=== PATIENT | male | born 1945 | race African-American/Black ===

== ENCOUNTER 2017-08-26 16:59 | Emergency (ER) | payer MEDICARE, OTHER ==
[~2017-08-26] VITALS: Ht 190.5 cm; Wt 113.4 kg
--- NOTE | 2017-08-26 17:05 | Emergency Room Report ---
History of Present Illness General Chief Complaint: Dizziness Source: Patient, EMS Present Illness HPI 72-year-old male with known difficult to treat her blood pressure brought in by EMS for episode of dizziness at home. Patient was lying down experienced dizziness, check blood pressure and it was high, 150/110. Patient takes 4 blood pressure medications, compliantl today. He states he was at [facility] recently, had a ischemic stroke, however was not discharged with any aspirin or other secondary stroke prevention medication, he has no known contraindication to aspirin or Plavix. He is not sure why he wasn't prescribed any medication on discharge. 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 However prior to EMS arrival patient started to feel better, and is currently asymptomatic. He otherwise denies chest pain, shortness of breath, abdominal pain, headache, palpitations or dizziness or nausea or vomiting currently. Allergies: Coded Allergies: No Known Allergies (Unverified , 08/26/17) Patient History Past Medical History: HTN, CVA/TIA Past Surgical History: none Pertinent Family History: none Social History: Denies: smoking, alcohol use, drug use Immunizations: UTD Reviewed Nursing Documentation: PMH: Agreed, PSxH: Agreed Review of Systems All Other Systems: negative except mentioned in HPI Physical Exam Vital Signs Date Time Temp Pulse Resp B/P (MAP) Pulse Ox O2 Delivery O2 Flow Rate FiO2 08/26/17 16:57 98.1 71 20 183/115 99 Sp02 EP Interpretation: reviewed, normal General Appearance: normal inspection, well appearing, no apparent distress, alert, GCS 15, non-toxic Head: normocephalic, atraumatic Eyes: bilateral eye PERRL, bilateral eye EOMI ENT: normal ENT inspection, hearing grossly normal, normal pharynx, no angioedema, normal voice, TMs + canals normal, uvula midline, moist mucus membranes Neck: normal inspection, full range of motion, supple, thyroid normal, no meningismus, no bony tend Respiratory: normal inspection, lungs clear, normal breath sounds, no rhonchi, no respiratory distress, no retraction, no accessory muscle use, no wheezing, speaking full sentences Cardiovascular #1: regular rate, rhythm, no edema, no JVD, normal capillary refill Gastrointestinal: normal inspection, normal bowel sounds, non tender, soft, no mass, no peritonitis, non-distended, no guarding, no hernia, no pulsatile mass Genitourinary: no CVA tenderness Musculoskeletal: normal inspection, back normal, normal range of motion, no calf tenderness, pelvis stable, Tiago's Sign negative Neurologic: normal inspection, alert, oriented x3, responsive, 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, motor strength/tone normal, cerebellar normal, normal gait, speech normal Psychiatric: normal inspection, judgement/insight normal, mood/affect normal, no suicidal/homicidal ideation, no delusions Skin: normal inspection, normal color, no rash Lymphatic: normal inspection, no adenopathy Medical Decision Making Diagnostic Impression: Primary Impression: Dizziness ER Course 72-year-old male with episode of dizziness Currently asymptomatic Vital signs here notable for elevated blood pressure over without intervention improved to 157/86 Patient has no focal neurological deficits, cerebellar exam is normal, patient ambulated into the ER without assistance. ct head: no acute hemorrhagic stroke or ischemic infarct Labs:unremarkable. Mild elevation in serum creatinine likely due to poorly controlled hypertension EKG:nonischemic Troponin 0, CBC normal, no other metabolic abnormalities The patient likely needs to be started on secondary stroke prevention, upotodate recommends daily aspirin advised patient to followup with his PMD to determine if Plavix is also an option ER course: Patient has remained stable during ED stay. Disposition: Patient is to be discharged to home. Prescriptions given are ASA Patient is instructed to follow up with their primary care doctor within 5 days. Strict return precautions discussed with patient such as fever, chills, worsening/severe pain, nausea, vomiting, which may indicate severe illness. Patient verbalizes understanding and agrees with plan. Please note that this Emergency Department Report was dictated using [employer] custody technology software, occasionally this can lead to erroneous entry secondary to interpretation by the dictation equipment EKG Diagnostic Results Rate: normal Rhythm: NSR ST Segments: no acute changes ASA given to the pt in ED: No Rhythm Strip Diag. Results EP Interpretation: yes Rate: 83 Rhythm: NSR, no PVC's, no ectopy Last Vital Signs Date Time Temp Pulse Resp B/P (MAP) Pulse Ox O2 Delivery O2 Flow Rate FiO2 08/26/17 16:57 98.1 71 20 183/115 99 Status: improved Disposition: HOME, SELF-CARE Scripts Aspirin (Aspirin EC) 81 Mg Tablet. 81 MG ORAL DAILY for 30 Days, #30 TAB Prov: SILVIA CRESPO M.D. 08/26/17 SILVIA CRESPO M.D. Aug 26, 2017 17:05
[2017-08-26] MEDS ORDERED: ASPIRIN-LOW81 MG ORAL (17:14)
[2017-08-26 17:15] VITALS: BP 163/103
[2017-08-26 17:50] LABS: BASOPHILS % (AUTO) 2.2 % (0.0-2.0); EOSINOPHILS % (AUTO) 5.6 % (0.0-3.0); HEMATOCRIT 49.1 % (42.0-52.0); MEAN CORPUSCULAR VOLUME 100 FL (80-99); MONOCYTES % (AUTO) 11.2 % (1.0-10.0); PLATELET COUNT 235 K/UL (150-450); RED BLOOD COUNT 4.93 M/UL (4.70-6.10); RED CELL DISTRIBUTION WIDTH 12.8 % (11.6-14.8); WHITE BLOOD COUNT 8.9 K/UL (4.8-10.8)
[2017-08-26 18:00] VITALS: BP 157/86
[2017-08-26 18:00] LABS: ANION GAP 8 mmol/L (5-15); BLOOD UREA NITROGEN 14 mg/dL (7-18); CALCIUM 9.6 MG/DL (8.5-10.1); CARBON DIOXIDE 29 MMOL/L (21-32); CHLORIDE 102 MMOL/L (98-107); CREATININE 1.4 MG/DL (0.55-1.30); POTASSIUM 3.9 MMOL/L (3.5-5.1); SODIUM 139 MMOL/L (136-145)
[2017-08-26 18:04] LABS: ALANINE AMINOTRANSFERASE 125 U/L (12-78); ALBUMIN 4.1 G/DL (3.4-5.0); ALBUMIN/GLOBULIN RATIO 0.8 (1.0-2.7); ALKALINE PHOSPHATASE 86 U/L (46-116); ASPARTATE AMINO TRANSFERASE 64 U/L (15-37); BILIRUBIN,TOTAL 0.5 MG/DL (0.2-1.0)
[2017-08-26] MEDS ORDERED: LISINOPRIL20 MG ORAL (18:16)
[2017-08-26] MEDS ORDERED: ABILIFY10 MG ORAL (18:16)
[2017-08-26] MEDS ORDERED: AMLODIPINE BESY10 MG ORAL (18:17)
[2017-08-26] MEDS ORDERED: TAMSULOSIN HCL0.4 MG ORAL (18:18)
[2017-08-26] MEDS ORDERED: IBUPROFEN600 MG ORAL (18:19)
[2017-08-26] MEDS ORDERED: BENADRYL50 MG ORAL (18:20)
[2017-08-26] MEDS ORDERED: OMEPRAZOLE40 M1 ORAL (18:21)
[2017-08-26] MEDS ORDERED: SOMA350 MG PO (18:23)
[2017-08-26] MEDS ORDERED: SIMVASTATIN20 MG ORAL (18:28)
[2017-08-26] MEDS ORDERED: ZOCOR20 M1 ORAL (18:28)
[2017-08-26 18:40] VITALS: BP 156/88
--- NOTE | 2017-08-27 08:52 | Diagnostic Imaging Report ---
Indication: Dizziness Technique: Contiguous 5 mm thick transaxial imaging of the head obtained in a Siemens Sensation [address] scanner. Soft tissue and bone windows generated. Automatic Exposure Control was utilized. Total Dose length Product (DLP): 1354.[address] Dose Index Volume (CTDIvol): 70.38 mGy Comparison: none Findings: Mild, nonspecific, white matter hypoattenuation is noted throughout the brain consistent with chronic small vessel disease. Metallic artifact obscuring portions of the brain due to small foreign bodies within the scalp. There is no midline shift, edema, acute hemorrhage, mass effect, or abnormal extra-axial fluid collections. Bones and extra osseous soft tissues are unremarkable. Mucosal thickening demonstrated in the ethmoid sinus. Impression: No acute intracranial bleed, mass effect or edema. Nonspecific white matter hypoattenuation probably due to chronic small vessel disease. Metallic artifacts. Ethmoid sinusitis. [facility] has communicated the preliminary results to the Emergency Department. Their findings are largely concordant with this report. The CT scanner at [facility] is accredited by the [employer] and the scans are performed using dose optimization techniques as appropriate to a performed exam including Automatic Exposure control.
--- NOTE | 2017-08-27 12:38 | Cardiology Report ---
APPROVED REPORT EKG Measurement Heart [id number] CT [id number] Normal sinus rhythm Normal ECG
== END 2017-08-26 18:40 | disposition home or self-care (01) ==
LOC: EDBD 16:59 → EMR 17:19
DX: R42 Dizziness and giddiness (principal); I10 Essential (primary) hypertension; Z86.73 Personal history of transient ischemic attack (TIA), and cerebral infarction without residual deficits; J32.2 Chronic ethmoidal sinusitis
CPT/HCPCS: 36415; 70450; 80053; 84484; 85025; 93005; 99284

== ENCOUNTER 2017-12-06 12:28 | Inpatient (IN) | payer MEDICARE, OTHER ==
[~2017-12-06] VITALS: Ht 182.9 cm; Wt 113.4 kg
[2017-12-06] VITALS (10 sets, daily range): BP systolic 78–129; BP diastolic 50–84
[~2017-12-06 12:28] MED LIST: ABILIFY10 MG ORAL; AMLODIPINE BESY10 MG ORAL; ASPIRIN-LOW81 MG ORAL; BENADRYL50 MG ORAL; IBUPROFEN600 MG ORAL; LISINOPRIL20 MG ORAL; OMEPRAZOLE40 M1 ORAL; SIMVASTATIN20 MG ORAL; SOMA350 MG PO; TAMSULOSIN HCL0.4 MG ORAL; ZOCOR20 M1 ORAL
[2017-12-06] MEDS ORDERED: Sodium Chloride 500ML 500 ML IV ONE ×2 (12:31→20:30)
--- NOTE | 2017-12-06 12:39 | Emergency Room Report ---
History of Present Illness General Chief Complaint: Generalized Weakness Source: Patient, EMS Present Illness HPI Patient presents with complaints of low back pain pelvic pain bilaterally and left ankle pain Describes a mechanical slip and fall just prior to arrival However the patient is not able to stand and bear weight since the fall denies any headache Denies any chest pain or shortness of breath denies any upper extremity discomfort Pain to the lower back and left ankle is 6 out of 10 Worse with movement denies any recent fevers Allergies: Coded Allergies: No Known Allergies (Unverified , 08/26/17) Patient History Past Medical History: see triage record Pertinent Family History: none Reviewed Nursing Documentation: PMH: Agreed; PSxH: Agreed Nursing Documentation-PMH Past Medical History: No History, Except For Hx Hypertension: Yes History Of Psychiatric Problem: Yes - schizophrenia Hx Cerebrovascular Accident: Yes - 4 months ago Review of Systems All Other Systems: negative except mentioned in HPI Physical Exam Vital Signs Date Time Temp Pulse Resp B/P (MAP) Pulse Ox O2 Delivery O2 Flow Rate FiO2 12/06/17 12:30 98.1 85 18 120/80 99 Room Air 98.1 Sp02 EP Interpretation: reviewed, normal General Appearance: no apparent distress Head: normocephalic, atraumatic Eyes: bilateral eye PERRL, bilateral eye EOMI ENT: hearing grossly normal, normal pharynx Neck: full range of motion, supple Respiratory: chest non-tender, lungs clear Cardiovascular #1: regular rate, rhythm Gastrointestinal: non tender, soft Musculoskeletal: swelling - Left ankle, neurovascularly intact however, tender on paraspinal L345, no midline step-off sensory intact Neurologic: alert, oriented x3, responsive Skin: other - Swelling as noted above Lymphatic: no adenopathy Procedures Splinting Splinting : Consent: Verbal Location: left ankle Pre-Made Type: aircast Splint: sugar-tong Pre-Proc Neuro Vasc Exam: normal Post-Proc Neuro Vasc Exam: normal Patient Tolerated: Well Complications: None Medical Decision Making Diagnostic Impression: Primary Impression: Fall Additional Impressions: Unable to ambulate Rhabdomyolysis Elevated transaminase level ER Course With patient's initial presentation essentially complained of mainly falling just prior to presenting to the ER Patient's blood work however reveals abnormalities including significantly elevated total CK Evidence of rhabdomyolysis Causing also elevation of the liver function test patient's kidney function is also abnormal Patient given further IV hydration and requires inpatient care Labs Test 12/06/17 13:05 12/06/17 13:15 White Blood Count 17.3 K/UL (4.8-10.8) Red Blood Count 4.26 M/UL (4.70-6.10) Hemoglobin 14.2 G/DL (14.2-18.0) Hematocrit 40.5 % (42.0-52.0) Mean Corpuscular Volume 95 FL (80-99) Mean Corpuscular Hemoglobin 33.4 PG (27.0-31.0) Mean Corpuscular Hemoglobin Concent 35.1 G/DL (32.0-36.0) Red Cell Distribution Width 13.6 % (11.6-14.8) Platelet Count 241 K/UL (150-450) Mean Platelet Volume 7.5 FL (6.5-10.1) Neutrophils (%) (Auto) 81.0 % (45.0-75.0) Lymphocytes (%) (Auto) 10.5 % (20.0-45.0) Monocytes (%) (Auto) 8.0 % (1.0-10.0) Eosinophils (%) (Auto) 0.0 % (0.0-3.0) Basophils (%) (Auto) 0.6 % (0.0-2.0) Sodium Level 140 MMOL/L (136-145) Potassium Level 4.1 MMOL/L (3.5-5.1) Chloride Level 103 MMOL/L (98-107) Carbon Dioxide Level 22 MMOL/L (21-32) Anion Gap 15 mmol/L (5-15) Blood Urea Nitrogen 46 mg/dL (7-18) Creatinine 2.8 MG/DL (0.55-1.30) Estimat Glomerular Filtration Rate mL/min (>60) Glucose Level 106 MG/DL (74-106) Calcium Level 9.9 MG/DL (8.5-10.1) Total Bilirubin 0.9 MG/DL (0.2-1.0) Aspartate Amino Transf (AST/SGOT) 608 U/L (15-37) Alanine Aminotransferase (ALT/SGPT) 268 U/L (12-78) Alkaline Phosphatase 69 U/L (46-116) Total Creatine Kinase 97433 U/L (26-308) Creatine Kinase MB 43.2 NG/ML (0.0-3.6) Creatine Kinase MB Relative Index 0.1 Troponin I 0.137 ng/mL (0.000-0.056) Total Protein 8.8 G/DL (6.4-8.2) Albumin 4.0 G/DL (3.4-5.0) Globulin 4.8 g/dL Albumin/Globulin Ratio 0.8 (1.0-2.7) Urine Color Yellow Urine Appearance Clear Urine pH 6 (4.5-8.0) Urine Specific [place] 1.015 (1.005-1.035) Urine Protein 3+ (NEGATIVE) Urine Glucose (UA) Negative (NEGATIVE) Urine Ketones 1+ (NEGATIVE) Urine Occult Blood 5+ (NEGATIVE) Urine Nitrite Negative (NEGATIVE) Urine Bilirubin Negative (NEGATIVE) Urine Urobilinogen Normal MG/DL (0.0-1.0) Urine Leukocyte Esterase 1+ (NEGATIVE) Urine RBC 2-4 /HPF (0 - 0) Urine WBC 2-4 /HPF (0 - 0) Urine Squamous Epithelial Cells Occasional /LPF Urine Bacteria Occasional /HPF (NONE) Urine Sperm Occasional /LPF (NONE) Rhythm Strip Diag. Results EP Interpretation: yes Rate: 78 Rhythm: NSR, no PVC's, no ectopy Chest X-Ray Diagnostic Results Chest X-Ray Diagnostic Results : Chest X-Ray Ordered: Yes # of Views/Limited/Complete: 1 View Indication: Chest Pain EP Interpretation: Yes Interpretation: no consolidation, no effusion, no pneumothorax Impression: No acute disease Electronically Signed by: rain bill do Other X-Ray Diagnostic Results Other X-Ray Diagnostic Results : X-Ray ordered: left ankle # of Views/Limited Vs Complete: 3 View Indication: Pain EP Interpretation: Yes Interpretation: no dislocation, other - question acuity, tibial fracture, significant chronicity as well Impression: Other - acuity uncertain left tibial fracture Electronically Signed by: rain bill do CT/MRI/US Diagnostic Results CT/MRI/US Diagnostic Results : Impression ct abdpelvis and ct L spine: IMPRESSION: 1. No acute traumatic injuryidentified, allowing for lack of contrast. 2. Possible isodense subcapsular left medial upper pole renal nodule, measuring up to 1.8 cmin diameter, versus cortical lobulation; additional 5-6 mmhyperdense nodule in the subcapsular posterior cortex of the left mid kidney. Nonemergent targeted renal ultrasound is suggested for further evaluation, unless previouslyperformed. INCIDENTAL:Hypodense bilateral renal cysts;moderate atherosclerosis;mild to moderate prostatomegaly, with mild circumferential wall thickening of the moderatelyto markedlydistended urinarybladder (estimated volume = 500 cc), aswell as right posterior urinarybladder diverticulum, suggesting chronic bladder outlet obstruction; small to moderate fat-containing bilateral indirect inguinal hernias; peripheral inferior right middle lobe sub-segmental atelectasis or fibrosis; calcified lingular granuloma. CT L SPINE: (No comparison exams available). IMPRESSION:No acute fracture. INCIDENTAL: Multilevel mild and moderate disc and facet joint degeneration; partial ankylosis of the anterior SI joints bilaterallywith bridging marginal osteophytes. Last Vital Signs Date Time Temp Pulse Resp B/P (MAP) Pulse Ox O2 Delivery O2 Flow Rate FiO2 12/06/17 12:30 98.1 85 18 120/80 99 Room Air 98.1 Status: improved Disposition: ADMITTED INPATIENT Condition: Serious Rain Bill DO Dec 06, 2017 12:39
[2017-12-06 13:51] LABS: BASOPHILS % (AUTO) 0.6 % (0.0-2.0); HEMATOCRIT 40.5 % (42.0-52.0); HEMOGLOBIN 14.2 G/DL (14.2-18.0); LYMPHOCYTES % (AUTO) 10.5 % (20.0-45.0); MEAN CORPUSCULAR VOLUME 95 FL (80-99); PLATELET COUNT 241 K/UL (150-450); RED BLOOD COUNT 4.26 M/UL (4.70-6.10); RED CELL DISTRIBUTION WIDTH 13.6 % (11.6-14.8); WHITE BLOOD COUNT 17.3 K/UL (4.8-10.8)
[2017-12-06 13:56] LABS: APPEARANCE,URINE CLEAR; BILIRUBIN, URINE NEGATIVE (NEGATIVE); GLUCOSE, URINE (UA) NEGATIVE (NEGATIVE); KETONES,URINE 1+ (NEGATIVE); LEUKOCYTE ESTERASE ,URINE 1+ (NEGATIVE); NITRITE,URINE NEGATIVE (NEGATIVE); PH,URINE 6 (4.5-8.0); PROTEIN,URINE 3+ (NEGATIVE); UROBILINOGEN,URINE NORMAL MG/DL (0.0-1.0)
[2017-12-06 14:06] LABS: ANION GAP 15 mmol/L (5-15); BLOOD UREA NITROGEN 46 mg/dL (7-18); CALCIUM 9.9 MG/DL (8.5-10.1); CARBON DIOXIDE 22 MMOL/L (21-32); CHLORIDE 103 MMOL/L (98-107); CREATININE 2.8 MG/DL (0.55-1.30); POTASSIUM 4.1 MMOL/L (3.5-5.1); SODIUM 140 MMOL/L (136-145)
[2017-12-06 14:06] LABS: COLOR,URINE YELLOW
[2017-12-06 14:20] LABS: ALANINE AMINOTRANSFERASE 268 U/L (12-78); ALBUMIN/GLOBULIN RATIO 0.8 (1.0-2.7); ALKALINE PHOSPHATASE 69 U/L (46-116); ASPARTATE AMINO TRANSFERASE 608 U/L (15-37); BILIRUBIN,TOTAL 0.9 MG/DL (0.2-1.0); CKMB 43.2 NG/ML (0.0-3.6); CREATINE KINASE 23399 U/L (26-308)
[2017-12-06] MEDS ORDERED: Albuterol/Ipratropium 3ml neb HHN PRN (14:30)
[2017-12-06] MEDS ORDERED: CATAPRES0.1 MG ORAL (20:05)
[2017-12-06] MEDS ORDERED: FUROSEMIDE40 MG ORAL (20:06)
[2017-12-06] MEDS ORDERED: Norco 5mg/325mg tab ORAL ONE (20:30)
[2017-12-06] MEDS: Heparin 5000 units/ml inj SUBQ SCH (22:20)
[2017-12-07] VITALS: BP 118/72
[2017-12-07 04:00] VITALS: BP 134/78
[2017-12-07 04:51] LABS: ANION GAP 8 mmol/L (5-15); BLOOD UREA NITROGEN 32 mg/dL (7-18); CALCIUM 8.9 MG/DL (8.5-10.1); CARBON DIOXIDE 26 MMOL/L (21-32); CHLORIDE 104 MMOL/L (98-107); CREATININE 1.7 MG/DL (0.55-1.30); POTASSIUM 3.6 MMOL/L (3.5-5.1); SODIUM 138 MMOL/L (136-145)
[2017-12-07 05:12] LABS: CREATINE KINASE 14709 U/L (26-308)
[2017-12-07 08:23] VITALS: BP 132/60
--- NOTE | 2017-12-07 08:55 | Diagnostic Imaging Report ---
Indication: Abdominal and back pain Technique: CT of the abdomen and pelvis utilizing automated exposure control without intravenous or oral contrast. CT dose: Total DLP 1117.79 mGycm; CTDI vol 19.28 mGy Comparison: None Findings: Evaluation of the vascular structures and solid organs limited without the use of intravenous or oral contrast. Within these limitations the following observations are made: There is dependent atelectasis in lung bases. There is subsegmental atelectasis versus consolidation in the middle lobe. Heart size within normal limits. Calcified granuloma in the lingula. Noncontrast evaluation of the liver, gallbladder, spleen, adrenal glands and pancreas grossly unremarkable. No definite evidence to suggest solid organ injury however evaluation limited without contrast. There is a possible isodense subcapsular left medial upper pole renal nodule which measures up to 1. Centimeters in diameter versus cortical lobulation. Additionally there is a 6 mm hyperdense nodule in the subcapsular posterior cortex of the left kidney (image 75). There are bilateral hypodense renal lesions which likely represent simple renal cysts. There is no hydronephrosis bilaterally. There is bladder distention with bladder wall thickening in the right posterior urinary bladder diverticulum. The prostate is enlarged there is no free intraperitoneal air. No evidence of bowel. No ascites. Appendix is normal. There is a tiny hiatus hernia. Abdominal aorta are normal in caliber with moderate atherosclerotic calcification. There is bilateral fat-containing inguinal hernias. There is multilevel degenerative change of the thoracolumbar spine most pronounced in the lower lumbar spine with there is vacuum disc phenomenon at L5-S1. No acute fracture identified. IMPRESSION: Limited exam without intravenous or oral contrast. Within these limitations: * No definite evidence to suggest solid organ injury however sensitivity limited without IV contrast. * No acute osseous abnormality identified. * Prostatomegaly with mild bladder distention, bladder wall thickening and bladder diverticulum. Findings suggest chronic bladder outlet obstruction. Correlate with urinalysis to exclude cystitis. * Subsegmental atelectasis versus scarring or fibrosis in the inferior right middle lobe. Superimposed pneumonia should be excluded clinically. * Possible isodense subcapsular left upper pole renal nodule measuring up to 1.8 cm diameter versus cortical lobulation. Additional 6 mm hyperdense nodule in the left kidney. Further evaluation with nonemergent renal ultrasound recommended unless previously performed. Findings correspond with the preliminary report. Study obtained via the emergency department however patient admitted to the hospital at time of dictation of the final report. The CT scanner at [facility] is accredited by the [employer] and the scans are performed using protocols designed to limit radiation exposure to as low as reasonably achievable to attain images of sufficient resolution adequate for diagnostic evaluation.
[2017-12-07] MEDS ORDERED: ARIPiprazole 10mg tab ORAL SCH (09:00)
[2017-12-07] MEDS ORDERED: Aspirin Baby 81mg ORAL SCH (09:00)
[2017-12-07] MEDS: Heparin 5000 units/ml inj SUBQ SCH ×2 (09:02→20:32)
--- NOTE | 2017-12-07 09:02 | Diagnostic Imaging Report ---
Indication: Pain status post fall Technique: CT lumbar spine was performed utilizing automated exposure control without intravenous contrast material. Axial, sagittal and coronal images were generated. CT dose: Total DLP 710.87 mGycm; CTDI vol 23.04 mGy Comparison: None Findings: No evidence of acute fracture or traumatic malalignment. There is overall mild to moderate multilevel degenerative change manifested by osteophyte formation, facet hypertrophy and loss of intervertebral body disc height as well as multilevel disc degeneration/small disc bulges. These findings are most pronounced at L5-S1 where there is vacuum disc phenomenon. There is no significant bony central canal stenosis. No significant bony foraminal narrowing. Please note that the cord, disc and nervous structures structures are better evaluated on MRI, which can be obtained for further evaluation as clinically indicated. There is partial ankylosis of the bilateral sacroiliac joints with bridging marginal osteophytes. There are atherosclerotic calcifications of a normal caliber aorta and iliac arteries. Please see concurrent CT of the abdomen and pelvis. IMPRESSION: No evidence of acute fracture or traumatic malalignment. Mild to moderate multilevel degenerative change of the lumbar spine as above. This corresponds with the [facility] preliminary report. Study obtained via the emergency department however patient admitted to the hospital at time of dictation of the final report. The CT scanner at [facility] is accredited by the [employer] and the scans are performed using protocols designed to limit radiation exposure to as low as reasonably achievable to attain images of sufficient resolution adequate for diagnostic evaluation.
--- NOTE | 2017-12-07 10:50 | Cardiology Report ---
APPROVED REPORT EXAM: Two-dimensional and M-mode echocardiogram with Doppler and color Doppler. INDICATION Syncope M-Mode DIMENSIONS IVSd1.6 (0.7-1.1cm)Left Atrium (MM)3.4 (1.6-4.0cm) LVDd4.6 (3.5-5.6cm)Aortic Root3.2 (2.0-3.7cm) PWd1.2 (0.7-1.1cm)Aortic Cusp Exc.2.0 (1.5-2.0cm) LVDs3.0 (2.5-4.0cm) PWs2.0 cm Normal left ventricular chamber size, systolic function and wall motion. Left ventricular ejection fraction estimated to be 55 %. Mild left ventricular hypertrophy. Anterior Echo-free space, may be due to pericardial fat or effusion. All other cardiac chamber sizes are within normal limits. Heavy focal aortic valve sclerosis with adequate cusp excursion. Mildly thickened mitral valve leaflets with normal excursion. Mild mitral annulus and aortic root calcification. Normal pulmonic valve structure. Normal tricuspid valve structure. IVC is normal in size with physiological collapse. A color flow and spectral Doppler study was performed and revealed: No aortic insufficiency. No mitral regurgitation. Mitral diastolic velocities suggest mild left ventricular diastolic dysfunction (Grade I). Trace tricuspid regurgitation. Tricuspid systolic velocities suggests peak right ventricular systolic pressure of 11 mmHg. No pulmonic regurgitation present.
--- NOTE | 2017-12-07 11:17 | History and Physical Report ---
DATE OF ADMISSION: 12/06/2017 CHIEF COMPLAINT: Generalized weakness. HISTORY OF PRESENT ILLNESS: This is a 72-year-old male, who came into the ED complaining of generalized muscular pain and weakness for several days prior to admission. There is also description of mechanical slip and fall and trauma to the left leg. PAST MEDICAL HISTORY: 1. Hypertensive cardiovascular disease. 2. Schizophrenia. 3. Degenerative joint disease. 4. Benign prostatic hypertrophy. HOME MEDICATIONS: Amlodipine, Abilify, Soma, clonidine, Benadryl, Lasix, Motrin, lisinopril, omeprazole, Zocor, and tamsulosin. ALLERGIES: No known drug allergies. FAMILY HISTORY: Unremarkable. SOCIAL HISTORY: He lives at home. HABITS: He is a nonsmoker and nondrinker. There is no history of illicit drug abuse. REVIEW OF SYSTEMS: HEENT: Hearing and eyesight are normal. ENDOCRINE: No history of diabetes, thyroid, or adrenal problems. RESPIRATORY: He denies shortness of breath, cough, or hemoptysis. CARDIOVASCULAR: He denies chest pain or palpitations. GASTROINTESTINAL: No history of hematochezia, melena, hematemesis, diarrhea, or constipation. GENITOURINARY: He denies dysuria, frequency, urgency, or hematuria. NEUROLOGIC: No history of stroke, syncope, or Parkinson disease. PHYSICAL EXAMINATION: GENERAL: This is an elderly male, who is in no acute distress. VITAL SIGNS: Blood pressure 134/78, pulse 86 and regular, respirations 20, and temperature 97.3. HEENT: The head is normocephalic and atraumatic. Pupils are equal, round, and reactive to light and accommodation consensually. NECK: Supple. Trachea midline. There was no lymphadenopathy or thyromegaly. LUNGS: Clear to auscultation and percussion. HEART: Regular rate and rhythm without rubs, murmurs, or gallops. ABDOMEN: Soft and nontender. Bowel sounds were active. EXTREMITIES: No clubbing, cyanosis, or edema. His left leg is slightly tender to touch. NEUROLOGIC: He is alert and oriented x4. Cranial nerves II through XII intact. LABORATORY AND ANCILLARY DATA: CBC shows white count of 17,300, hemoglobin 14.2, and platelet count 241,000. Serum chemistry, electrolytes within normal limits. Admission BUN 46, today 32. Admission creatinine 2.8, today 1.7. Admission CPK 23,399; today 14,709. Urinalysis, urine chemistry 1+ ketone, 5+ occult blood, which was completely within normal limits. ASSESSMENT: 1. Acute rhabdomyolysis, most likely due to fall, etiology unclear. 2. Hypertensive cardiovascular disease. 3. Schizophrenia. 4. Degenerative joint disease. 5. Benign prostatic hypertrophy. PLAN: 1. IV fluid rehydration. 2. Check serum CPK. 3. Psychiatric evaluation. Magan Alexander M.D. DR: SHARON JOB#: [id number] CC: [id number]
--- NOTE | 2017-12-07 11:53 | Diagnostic Imaging Report ---
Indication: Chest pain Technique: XRAY Chest 1v Comparison: None Findings: Heart size within the upper limits for normal. Mediastinal contours are sharp. There is patchy bibasilar airspace opacity, right greater than left, which may be related to atelectasis versus pneumonia. No pleural effusion. No pneumothorax. There are degenerative changes of the spine. No acute osseous abnormality. IMPRESSION: Patchy bibasilar opacities, right greater than left, which may related to subsegmental atelectasis or scarring. Pneumonia should be excluded clinically. Follow-up exam recommended. Study obtained via the emergency department however patient admitted to the hospital at time of dictation of the final report.
--- NOTE | 2017-12-07 11:59 | Diagnostic Imaging Report ---
Indication: Pain Technique: XRAY Ankle Compl Min 3v L Comparison: None Findings: There is no definite evidence of acute fracture. Ankle mortise is intact on these nonstress views. There are well-corticated ossific densities projecting adjacent to the medial malleolus which may be related to sequela of remote trauma, degenerative change or accessory ossicles. There is a plantar calcaneal enthesophyte. Imaged sinuses otherwise grossly unremarkable. No radiopaque foreign body seen. IMPRESSION: No evidence of acute fracture or dislocation. Well-corticated densities projecting adjacent to the medial malleolus may represent sequela of prior trauma, accessory ossicles and/or degenerative/arthritic change. Correlate clinically. Study obtained via the emergency department however patient admitted to the hospital at time of dictation of the final report.
[2017-12-07 12:00] VITALS: BP 144/107
[2017-12-07 16:00] VITALS: BP 156/107
[2017-12-07] MEDS ORDERED: Albuterol/Ipratropium 3ml neb HHN PRN (18:00)
[2017-12-07 20:00] VITALS: BP 150/100
[2017-12-07] MEDS ORDERED: Zolpidem 5mg tab ORAL PRN (20:45)
[2017-12-07] MEDS: Norco 5mg/325mg tab ORAL PRN (20:58)
[2017-12-08] VITALS: BP 131/100
[2017-12-08 04:00] VITALS: BP 142/94
[2017-12-08 05:22] LABS: BASOPHILS % (AUTO) 0.9 % (0.0-2.0); EOSINOPHILS % (AUTO) 2.1 % (0.0-3.0); HEMATOCRIT 40.7 % (42.0-52.0); HEMOGLOBIN 14.4 G/DL (14.2-18.0); LYMPHOCYTES % (AUTO) 31.4 % (20.0-45.0); MEAN CORPUSCULAR VOLUME 94 FL (80-99); MONOCYTES % (AUTO) 9.8 % (1.0-10.0); NEUTROPHILS % (AUTO) 55.8 % (45.0-75.0); PLATELET COUNT 239 K/UL (150-450); RED BLOOD COUNT 4.32 M/UL (4.70-6.10); WHITE BLOOD COUNT 9.1 K/UL (4.8-10.8)
[2017-12-08 05:35] LABS: CREATINE KINASE 6957 U/L (26-308)
[2017-12-08] MEDS: Norco 5mg/325mg tab ORAL PRN (07:01)
[2017-12-08 08:00] VITALS: BP 125/86
[2017-12-08] MEDS: ARIPiprazole 10mg tab ORAL SCH (08:07)
[2017-12-08] MEDS: Aspirin Baby 81mg ORAL SCH (08:09)
[2017-12-08] MEDS: Heparin 5000 units/ml inj SUBQ SCH ×2 (08:09→20:28)
--- NOTE | 2017-12-08 08:47 | General Progress Note ---
Assessment/Plan Assessment/Plan Acute Rhabdo====> CPK <7000 continue ivf. Ambulate. Subjective Allergies: Coded Allergies: No Known Allergies (Unverified , 08/26/17) Subjective No c/o Objective Last 24 Hour Vital Signs Date Time Temp Pulse Resp B/P (MAP) Pulse Ox O2 Delivery O2 Flow Rate FiO2 12/08/17 04:00 97.7 84 22 142/94 98 Room Air 97.7 12/08/17 04:00 94 12/08/17 00:00 97.3 96 20 131/100 97 Room Air 97.3 12/08/17 00:00 94 12/07/17 21:12 96 105 117 12/07/17 20:10 96 18 Room Air 12/07/17 20:00 97.7 106 19 150/100 98 Room Air 97.7 12/07/17 20:00 98 12/07/17 16:00 97.3 113 19 156/107 97 Room Air 97.3 12/07/17 15:26 117 12/07/17 12:00 97.9 99 20 144/107 96 Room Air 97.9 12/07/17 11:34 101 12/07/17 09:57 101 18 Room Air 21 Intake and Output 12/07/17 12/08/17 19:00 07:00 Intake Total 1310 ml 875 ml Balance 1310 ml 875 ml Intake Oral 560 ml IV Total 750 ml 875 ml # Voids 5 3 # Bowel Movements 1 Laboratory Tests 12/08/17 03:35: White Blood Count 9.1, Red Blood Count 4.32L, Hemoglobin 14.4, Hematocrit 40.7L , Mean Corpuscular Volume 94, Mean Corpuscular Hemoglobin 33.4H, Mean Corpuscular Hemoglobin Concent 35.4, Red Cell Distribution Width 13.0, Platelet Count 239, Mean Platelet Volume 6.8, Neutrophils (%) (Auto) 55.8, Lymphocytes (% ) (Auto) 31.4, Monocytes (%) (Auto) 9.8, Eosinophils (%) (Auto) 2.1, Basophils ( %) (Auto) 0.9, Magnesium Level 1.8, Total Creatine Kinase 6957H Height (Feet): 6 Height (Inches): 0.00 Weight (Pounds): 249 Objective CV RR Lungs CTA Abd SNT. BS + E No CCE Magan Alexander MD December 08, 2017 08:46
[2017-12-08] MEDS ORDERED: 1/2 NS 1000ml IV ONE (09:17)
[2017-12-08 12:00] VITALS: BP 136/95
[2017-12-08 16:00] VITALS: BP 126/75
[2017-12-08 20:00] VITALS: BP 140/92
--- NOTE | 2017-12-08 22:19 | Consultation ---
History of Present Illness General Date patient seen: Dec 07, 2017 Chief Complaint: Generalized Weakness Present Illness HPI 72-year-old male, with hx of schizophrenia who came to ED complaining of generalized muscular pain and weakness. the pt was seen on and was somewhat disorganized. the pt c/o insomnia and stated that he has anxiety. the pt didnt endorse avh, no si/hi/ no agitation Allergies: Coded Allergies: No Known Allergies (Unverified , 08/26/17) Medication History Scheduled Amlodipine Besylate* (Amlodipine Besylate*), 10 MG ORAL DAILY, (Reported) Aripiprazole* (Abilify*), 10 MG ORAL DAILY, (Reported) Aspirin (Aspirin EC), 81 MG ORAL DAILY Clonidine Hcl* (Catapres*), 0.1 MG ORAL EVERY 6 HOURS, (Reported) Diphenhydramine HCl (Diphenhydramine HCl), 50 MG ORAL QHS, (Reported) Furosemide* (Lasix*), 40 MG ORAL DAILY, (Reported) Lisinopril (Lisinopril*), 20 MG ORAL DAILY, (Reported) Omeprazole (Omeprazole), 40 MG ORAL DAILY, (Reported) Simvastatin (Zocor), 20 MG ORAL BEDTIME, (Reported) Tamsulosin Hcl (Tamsulosin Hcl*), 0.4 MG ORAL BID, (Reported) Scheduled PRN Carisoprodol* (Soma*), 350 MG PO for For Pain, (Reported) Ibuprofen* (Motrin*), 600 MG ORAL BID PRN for For Pain, (Reported) Patient History Limited by: medical condition History Provided By: Patient, Medical Record Healthcare decision maker Resuscitation status Full Code Advanced Directive on File Past Medical/Surgical History Past Medical/Surgical History: (1) Rhabdomyolysis (2) Fall (3) Unable to ambulate (4) Elevated transaminase level Review of Systems Psychiatric: Reports: prior hx, anxiety, depressed feelings, emotional problems , hallucinations Physical Exam General Appearance: WD/WN, no apparent distress, alert Neurologic: alert, oriented x 3, responsive, depressed affect Last 24 Hour Vital Signs Date Time Temp Pulse Resp B/P (MAP) Pulse Ox O2 Delivery O2 Flow Rate FiO2 12/08/17 21:48 103 119 124 12/08/17 20:00 103 12/08/17 20:00 97.3 103 19 140/92 97 97.3 12/08/17 16:00 99 12/08/17 16:00 98.2 107 21 126/75 98 98.2 12/08/17 12:00 97.3 90 19 136/95 98 97.3 12/08/17 12:00 87 12/08/17 09:00 100 119 124 12/08/17 08:50 88 18 Room Air 12/08/17 08:00 98.1 114 22 125/86 97 98.1 12/08/17 08:00 111 12/08/17 04:00 97.7 84 22 142/94 98 Room Air 97.7 12/08/17 04:00 94 12/08/17 00:00 97.3 96 20 131/100 97 Room Air 97.3 12/08/17 00:00 94 Intake and Output 12/07/17 12/08/17 19:00 07:00 Intake Total 1310 ml 875 ml Balance 1310 ml 875 ml Intake Oral 560 ml IV Total 750 ml 875 ml # Voids 5 3 # Bowel Movements 1 Laboratory Tests Test 12/08/17 03:35 White Blood Count 9.1 K/UL (4.8-10.8) Red Blood Count 4.32 M/UL (4.70-6.10) L Hemoglobin 14.4 G/DL (14.2-18.0) Hematocrit 40.7 % (42.0-52.0) L Mean Corpuscular Volume 94 FL (80-99) Mean Corpuscular Hemoglobin 33.4 PG (27.0-31.0) H Mean Corpuscular Hemoglobin Concent 35.4 G/DL (32.0-36.0) Red Cell Distribution Width 13.0 % (11.6-14.8) Platelet Count 239 K/UL (150-450) Mean Platelet Volume 6.8 FL (6.5-10.1) Neutrophils (%) (Auto) 55.8 % (45.0-75.0) Lymphocytes (%) (Auto) 31.4 % (20.0-45.0) Monocytes (%) (Auto) 9.8 % (1.0-10.0) Eosinophils (%) (Auto) 2.1 % (0.0-3.0) Basophils (%) (Auto) 0.9 % (0.0-2.0) Magnesium Level 1.8 MG/DL (1.8-2.4) Total Creatine Kinase 6957 U/L (26-308) H Height (Feet): 6 Height (Inches): 0.00 Weight (Pounds): 249 Medications Current Medications Medications (Trade) Dose Ordered Sig/Edu Route PRN Reason Start Time Stop Time Status Last Admin Dose Admin Acetaminophen/ Hydrocodone Bitart (Plains 5/325) 1 tab Q6H PRN ORAL For Pain 12/07/17 20:45 12/14/17 20:44 12/08/17 07:01 Albuterol/ Ipratropium (Albuterol/ Ipratropium) 3 ml Q6H PRN HHN Shortness of Breath 12/07/17 18:00 12/11/17 17:59 Aripiprazole (Abilify) 10 mg DAILY ORAL 12/08/17 09:00 01/06/18 08:59 12/08/17 08:07 Aspirin (ASA) 81 mg DAILY ORAL 12/08/17 09:00 01/06/18 08:59 12/08/17 08:09 Dextrose (Dextrose 50%) 25 ml STAT PRN IV Hypoglycemia 12/07/17 18:00 01/06/18 17:59 Dextrose (Dextrose 50%) 50 ml STAT PRN IV Hypoglycemia 12/07/17 18:00 01/06/18 17:59 Heparin Sodium (Porcine) (Heparin 5000 units/ml) 5,000 units EVERY 12 HOURS SUBQ 12/07/17 21:00 01/05/18 20:59 12/08/17 20:28 Mirtazapine (Remeron) 7.5 mg BEDTIME ORAL 12/08/17 21:00 01/07/18 20:59 12/08/17 20:26 Sodium Chloride 1,000 ml @ 75 mls/hr [id number] IV 12/07/17 18:00 01/05/18 17:59 12/08/17 20:26 Assessment/Plan Status: unchanged Assessment/Plan schizophrenia cont abilify provided osmani/Emmanuel Urbano M.D. December 08, 2017 22:19
--- NOTE | 2017-12-08 22:21 | General Progress Note ---
Assessment/Plan Assessment/Plan schizophrenia cont abilify provided ro/st remeron 15mg qhs Subjective Date patient seen: December 08, 2017 Neurologic/Psychiatric: Reports: anxiety, depressed, emotional problems Allergies: Coded Allergies: No Known Allergies (Unverified , 08/26/17) Subjective didn't sleep well Objective Last 24 Hour Vital Signs Date Time Temp Pulse Resp B/P (MAP) Pulse Ox O2 Delivery O2 Flow Rate FiO2 12/08/17 21:48 103 119 124 12/08/17 20:00 103 12/08/17 20:00 97.3 103 19 140/92 97 97.3 12/08/17 16:00 99 12/08/17 16:00 98.2 107 21 126/75 98 98.2 12/08/17 12:00 97.3 90 19 136/95 98 97.3 12/08/17 12:00 87 12/08/17 09:00 100 119 124 12/08/17 08:50 88 18 Room Air 12/08/17 08:00 98.1 114 22 125/86 97 98.1 12/08/17 08:00 111 12/08/17 04:00 97.7 84 22 142/94 98 Room Air 97.7 12/08/17 04:00 94 12/08/17 00:00 97.3 96 20 131/100 97 Room Air 97.3 12/08/17 00:00 94 Intake and Output 12/07/17 12/08/17 19:00 07:00 Intake Total 1310 ml 875 ml Balance 1310 ml 875 ml Intake Oral 560 ml IV Total 750 ml 875 ml # Voids 5 3 # Bowel Movements 1 Laboratory Tests 12/08/17 03:35: White Blood Count 9.1, Red Blood Count 4.32L, Hemoglobin 14.4, Hematocrit 40.7L , Mean Corpuscular Volume 94, Mean Corpuscular Hemoglobin 33.4H, Mean Corpuscular Hemoglobin Concent 35.4, Red Cell Distribution Width 13.0, Platelet Count 239, Mean Platelet Volume 6.8, Neutrophils (%) (Auto) 55.8, Lymphocytes (% ) (Auto) 31.4, Monocytes (%) (Auto) 9.8, Eosinophils (%) (Auto) 2.1, Basophils ( %) (Auto) 0.9, Magnesium Level 1.8, Total Creatine Kinase 6957H Height (Feet): 6 Height (Inches): 0.00 Weight (Pounds): 249 General Appearance: no apparent distress, alert Neurologic: oriented x 3, responsive, depressed affect Emmanuel Mcclendon M.D. December 08, 2017 22:21
[2017-12-08] MEDS: dilTIAZem HCl CD 180mg cap ORAL SCH (23:30)
[2017-12-08] MEDS ORDERED: dilTIAZem HCl 60mg tab ORAL ONE (23:30)
[2017-12-09] VITALS: BP 142/76
[2017-12-09 04:00] VITALS: BP 136/83
[2017-12-09 05:27] LABS: ANION GAP 9 mmol/L (5-15); BLOOD UREA NITROGEN 15 mg/dL (7-18); CALCIUM 9.3 MG/DL (8.5-10.1); CARBON DIOXIDE 29 MMOL/L (21-32); CHLORIDE 100 MMOL/L (98-107); CREATININE 1.1 MG/DL (0.55-1.30); SODIUM 138 MMOL/L (136-145)
[2017-12-09 05:40] LABS: ALANINE AMINOTRANSFERASE 292 U/L (12-78); ALBUMIN 3.5 G/DL (3.4-5.0); ALBUMIN/GLOBULIN RATIO 0.9 (1.0-2.7); ALKALINE PHOSPHATASE 68 U/L (46-116); ASPARTATE AMINO TRANSFERASE 215 U/L (15-37); CHOLESTEROL 157 MG/DL (< 200); CREATINE KINASE 3322 U/L (26-308); HDL CHOLESTEROL 41 MG/DL (40-60); TRIGLYCERIDES 103 MG/DL (30-150)
--- NOTE | 2017-12-09 06:00 | Consultation ---
DATE OF CONSULTATION: 12/08/2017 CARDIOLOGY CONSULTATION CONSULTING PHYSICIAN: Jason Ventura M.D. REQUESTING PHYSICIAN: Magan Alexander M.D. REASON FOR CONSULTATION: Supraventricular tachycardia. HISTORY OF PRESENT ILLNESS: This is a 72-year-old male, who presented to the hospital with weakness and muscle pain. He was noted to have a recent mechanical slip and fall with left leg trauma. He is being treated for rhabdomyolysis with IV fluids. He has been noted to have high blood pressure readings and episodes of sustained supraventricular tachyarrhythmias with rates up to 150, but has been asymptomatic. PAST MEDICAL HISTORY: Schizophrenia, osteoarthritis, prostatic hypertrophy, hypertensive heart disease, hyperlipidemia. ALLERGIES: None. FAMILY HISTORY: Not contributory. SOCIAL HISTORY: Negative for smoking, alcohol, or substance abuse. MEDICATIONS: Prior to admission, reviewed and reconciled. REVIEW OF SYSTEMS: No fevers or chills. No history of exertional chest pain. No history of blood clots in the legs. No known history of irregular heartbeats in the past. No history of seizure or stroke. No known history of diabetes or thyroid impairment. PHYSICAL EXAMINATION: GENERAL: He appears younger than stated age, in no acute distress. VITAL SIGNS: Blood pressure 130/72, heart rate 136, respiratory rate 18. HEENT: Normocephalic, atraumatic. Conjunctivae pink. Oropharynx clear. NECK: Supple. Jugular venous pressure normal. LUNGS: Clear. CARDIAC: Regular rhythm and rate. Normal S1, S2. There is no murmur. ABDOMEN: Soft and nontender. EXTREMITIES: Revealed no edema. LABORATORY DATA: Labs are reviewed. EKG revealed sinus rhythm with no abnormality. Echocardiogram revealed normal ejection fraction with no significant valvular disease and diastolic dysfunction with concentric left ventricular hypertrophy. IMPRESSION: 1. Rhabdomyolysis secondary to left thigh trauma following a mechanical fall. 2. Paroxysmal supraventricular tachyarrhythmias. 3. Hypertensive heart disease. 4. History of hyperlipidemia. 5. Psychiatric disorder. PLAN: 1. Continue hydration. 2. Monitor electrolytes. 3. Monitor CK levels. 4. Add diltiazem. 5. DVT prophylaxis. 6. Reassess for long-term anticoagulation once the risk of falls and bleeding complications can be fairly assessed. Jason Ventura M.D. DR: Guanakito JOB#: [id number] CC:
--- NOTE | 2017-12-09 07:03 | General Progress Note ---
Assessment/Plan Assessment/Plan Acute Rhabdo====> CPK >3000 continue ivf. Ambulate. Subjective Allergies: Coded Allergies: No Known Allergies (Unverified , 08/26/17) Subjective No c/o Objective Last 24 Hour Vital Signs Date Time Temp Pulse Resp B/P (MAP) Pulse Ox O2 Delivery O2 Flow Rate FiO2 12/09/17 04:00 97.9 104 19 136/83 96 97.9 12/09/17 00:00 114 12/09/17 00:00 96.8 96 20 142/76 97 96.8 12/08/17 23:31 150 136/88 12/08/17 23:30 150 136/88 12/08/17 21:48 103 119 124 12/08/17 20:00 103 12/08/17 20:00 97.3 103 19 140/92 97 97.3 12/08/17 19:30 94 18 Room Air 21 12/08/17 16:00 99 12/08/17 16:00 98.2 107 21 126/75 98 98.2 12/08/17 12:00 97.3 90 19 136/95 98 97.3 12/08/17 12:00 87 12/08/17 09:00 100 119 124 12/08/17 08:50 88 18 Room Air 12/08/17 08:00 98.1 114 22 125/86 97 98.1 12/08/17 08:00 111 Intake and Output 12/08/17 12/09/17 19:00 07:00 Intake Total 1975 ml 262 ml Balance 1975 ml 262 ml Intake Oral 800 ml IV Total 1175 ml 262 ml # Voids 5 3 # Bowel Movements 2 Laboratory Tests 12/09/17 03:40: Sodium Level 138, Potassium Level 4.0, Chloride Level 100, Carbon Dioxide Level 29, Anion Gap 9, Blood Urea Nitrogen 15, Creatinine 1.1, Estimat Glomerular Filtration Rate , Glucose Level 105, Calcium Level 9.3, Total Bilirubin 1.0, Aspartate Amino Transf (AST/SGOT) 215H, Alanine Aminotransferase (ALT/SGPT) 292H , Alkaline Phosphatase 68, Total Creatine Kinase 3322H, Troponin I 0.008, Total Protein 7.4, Albumin 3.5, Globulin 3.9, Albumin/Globulin Ratio 0.9L, Triglycerides Level 103, Cholesterol Level 157, LDL Cholesterol 91, HDL Cholesterol 41, Cholesterol/HDL Ratio 3.8, Thyroid Stimulating Hormone (TSH) 0.944 Height (Feet): 6 Height (Inches): 0.00 Weight (Pounds): 248 Objective CV RR Lungs CTA Abd SNT. BS + E No CCE Magan Alexander MD December 09, 2017 07:02
[2017-12-09 08:08] VITALS: BP 126/81
[2017-12-09] MEDS: ARIPiprazole 10mg tab ORAL SCH (08:11)
[2017-12-09] MEDS: Heparin 5000 units/ml inj SUBQ SCH ×2 (08:12→20:49)
[2017-12-09] MEDS: Aspirin Baby 81mg ORAL SCH (08:16)
[2017-12-09] MEDS: dilTIAZem HCl CD 180mg cap ORAL SCH ×2 (08:16→20:48)
[2017-12-09 12:00] VITALS: BP 132/78
--- NOTE | 2017-12-09 12:22 | General Progress Note ---
Assessment/Plan Status: stable, progressing Assessment/Plan schizophrenia cont abilify provided ro/st remeron 15mg qhs Subjective Date patient seen: December 09, 2017 Neurologic/Psychiatric: Reports: anxiety, depressed, emotional problems Allergies: Coded Allergies: No Known Allergies (Unverified , 08/26/17) Subjective slept well Objective Last 24 Hour Vital Signs Date Time Temp Pulse Resp B/P (MAP) Pulse Ox O2 Delivery O2 Flow Rate FiO2 12/09/17 08:16 124 126/81 12/09/17 08:08 98.2 124 21 126/81 98 98.2 12/09/17 07:55 104 18 Room Air 21 12/09/17 04:00 97.9 104 19 136/83 96 97.9 12/09/17 00:00 114 12/09/17 00:00 96.8 96 20 142/76 97 96.8 12/08/17 23:31 150 136/88 12/08/17 23:30 150 136/88 12/08/17 21:48 103 119 124 12/08/17 20:00 103 12/08/17 20:00 97.3 103 19 140/92 97 97.3 12/08/17 19:30 94 18 Room Air 21 12/08/17 16:00 99 12/08/17 16:00 98.2 107 21 126/75 98 98.2 Intake and Output 12/08/17 12/09/17 19:00 07:00 Intake Total 1975 ml 262 ml Balance 1975 ml 262 ml Intake Oral 800 ml IV Total 1175 ml 262 ml # Voids 5 3 # Bowel Movements 2 Laboratory Tests 12/09/17 03:40: Sodium Level 138, Potassium Level 4.0, Chloride Level 100, Carbon Dioxide Level 29, Anion Gap 9, Blood Urea Nitrogen 15, Creatinine 1.1, Estimat Glomerular Filtration Rate , Glucose Level 105, Calcium Level 9.3, Total Bilirubin 1.0, Aspartate Amino Transf (AST/SGOT) 215H, Alanine Aminotransferase (ALT/SGPT) 292H , Alkaline Phosphatase 68, Total Creatine Kinase 3322H, Troponin I 0.008, Total Protein 7.4, Albumin 3.5, Globulin 3.9, Albumin/Globulin Ratio 0.9L, Triglycerides Level 103, Cholesterol Level 157, LDL Cholesterol 91, HDL Cholesterol 41, Cholesterol/HDL Ratio 3.8, Thyroid Stimulating Hormone (TSH) 0.944 Height (Feet): 6 Height (Inches): 0.00 Weight (Pounds): 248 General Appearance: no apparent distress, alert Neurologic: oriented x 3, responsive, normal mood/affect Emmanuel Mcclendon M.D. December 09, 2017 12:22
[2017-12-09 16:00] VITALS: BP 143/90
--- NOTE | 2017-12-09 19:45 | Progress Note ---
DATE: 12/09/2017 SUBJECTIVE: The patient has no new complaints. He remains on IV fluids. He was started on diltiazem last night for recurring supraventricular tachyarrhythmias likely atrial flutter. He has not had any recurrence today. He has episodes of sinus tachycardia however with mobility. PHYSICAL EXAMINATION: VITAL SIGNS: Blood pressure 143/90, pulse 106, respiratory rate 20, afebrile NECK: Supple LUNGS: Clear CARDIAC: Regular. Normal S1 and S2 with a fourth heart sound. ABDOMEN: Soft. No edema. LABORATORY AND DIAGNOSTIC DATA: CK 3300 down from 14,000. Chemistry panel otherwise within normal limits. IMPRESSION: 1. Transaminitis. 2. Rhabdomyolysis. 3. Secondary sinus tachycardia. 4. Paroxysmal supraventricular tachycardia. 5. Hypertensive heart disease. 6. Psychiatric disorder. PLAN: 1. Continue hydration. 2. Taper off IV fluids. 3. Maintain and titrate diltiazem for suppression of arrhythmias and management of blood pressure. 4. Followup liver function studies. 5. Review medications for secondary transaminitis. Jason Ventura M.D. DR: Gaby JOB#: [id number] CC:
[2017-12-09 20:00] VITALS: BP 148/88
[2017-12-10] VITALS: BP 145/91
[2017-12-10 04:00] VITALS: BP 122/72
[2017-12-10 07:45] LABS: CREATINE KINASE 1374 U/L (26-308)
[2017-12-10] MEDS: Aspirin Baby 81mg ORAL SCH (08:56)
[2017-12-10] MEDS: ARIPiprazole 10mg tab ORAL SCH (08:57)
[2017-12-10] MEDS: dilTIAZem HCl CD 180mg cap ORAL SCH (08:57)
[2017-12-10] MEDS: Heparin 5000 units/ml inj SUBQ SCH ×2 (08:58→21:01)
[2017-12-10 08:59] VITALS: BP 110/70
--- NOTE | 2017-12-10 10:04 | General Progress Note ---
Assessment/Plan Assessment/Plan Acute Rhabdo====> CPK 1300 continue ivf. Ambulate. Subjective Allergies: Coded Allergies: No Known Allergies (Unverified , 08/26/17) Subjective No c/o Objective Last 24 Hour Vital Signs Date Time Temp Pulse Resp B/P (MAP) Pulse Ox O2 Delivery O2 Flow Rate FiO2 12/10/17 08:59 97.5 107 20 110/70 96 97.5 12/10/17 08:57 107 110/60 12/10/17 08:00 98 20 Room Air 21 12/10/17 04:00 98.2 107 20 122/72 100 98.2 12/10/17 04:00 135 12/10/17 00:00 100.0 122 20 145/91 97 100.0 12/10/17 00:00 121 12/09/17 21:00 122 130 146 12/09/17 20:48 84 143/90 12/09/17 20:00 99.4 113 20 148/88 97 99.4 12/09/17 20:00 116 12/09/17 19:51 84 18 Room Air 21 12/09/17 16:00 97.2 106 20 143/90 98 97.2 12/09/17 12:00 98.1 98 20 132/78 98 98.1 12/09/17 12:00 78 80 87 Intake and Output 12/09/17 12/10/17 19:00 07:00 Intake Total 725 ml Output Total 500 ml Balance 225 ml Intake Oral 500 ml IV Total 225 ml Output Urine Total 500 ml Laboratory Tests 12/10/17 06:40: Total Creatine Kinase 1374H Height (Feet): 6 Height (Inches): 0.00 Weight (Pounds): 249 Objective CV RR Lungs CTA Abd SNT. BS + E No SAUNDRAE Magan Alexander MD December 10, 2017 10:04
[2017-12-10] MEDS ORDERED: 1/2 NS 1000ml IV ONE (10:12)
--- NOTE | 2017-12-10 11:49 | General Progress Note ---
Assessment/Plan Status: stable Assessment/Plan schizophrenia cont Abilify provided ro/st Remeron 15mg qhs script in chart Subjective Date patient seen: December 10, 2017 Neurologic/Psychiatric: Reports: anxiety, depressed Allergies: Coded Allergies: No Known Allergies (Unverified , 08/26/17) Subjective slept well. no side effect from remeron. asked for the script Objective Last 24 Hour Vital Signs Date Time Temp Pulse Resp B/P (MAP) Pulse Ox O2 Delivery O2 Flow Rate FiO2 12/10/17 08:59 97.5 107 20 110/70 96 97.5 12/10/17 08:57 107 110/60 12/10/17 08:00 98 20 Room Air 21 12/10/17 04:00 98.2 107 20 122/72 100 98.2 12/10/17 04:00 135 12/10/17 00:00 100.0 122 20 145/91 97 100.0 12/10/17 00:00 121 12/09/17 21:00 122 130 146 12/09/17 20:48 84 143/90 12/09/17 20:00 99.4 113 20 148/88 97 99.4 12/09/17 20:00 116 12/09/17 19:51 84 18 Room Air 21 12/09/17 16:00 97.2 106 20 143/90 98 97.2 12/09/17 12:00 98.1 98 20 132/78 98 98.1 12/09/17 12:00 78 80 87 Intake and Output 12/09/17 12/10/17 19:00 07:00 Intake Total 725 ml Output Total 500 ml Balance 225 ml Intake Oral 500 ml IV Total 225 ml Output Urine Total 500 ml Laboratory Tests 12/10/17 06:40: Total Creatine Kinase 1374H Height (Feet): 6 Height (Inches): 0.00 Weight (Pounds): 249 General Appearance: WD/WN, no apparent distress, alert Neurologic: alert, oriented x 3, responsive, depressed affect Emmanuel Mcclendon M.D. December 10, 2017 11:49
[2017-12-10 12:00] VITALS: BP 120/71
[2017-12-10 16:00] VITALS: BP 125/59
[2017-12-10] MEDS: Metoprolol Succinate XL 50mg tab ORAL SCH (16:13)
[2017-12-10 20:00] VITALS: BP 123/81
[2017-12-11] VITALS: BP 127/78
--- NOTE | 2017-12-11 02:45 | Progress Note ---
DATE: 12/10/2017 CARDIOLOGY PROGRESS NOTE SUBJECTIVE: The patient is insisting on smoking at times. Once ambulatory, his heart rate immediately shoots up above 120. Sinus tachycardia noted, but yesterday there were episodes of SVT. The patient is asymptomatic. OBJECTIVE: VITAL SIGNS: Temperature max 100, blood pressure 122/72, heart rate 107, and respiratory rate 20. NECK: Supple. LUNGS: Clear. CARDIAC: Regular rhythm. Rapid rate. Normal S1, S2. ABDOMEN: Soft. EXTREMITIES: No edema. IMPRESSION: 1. Secondary sinus tachycardia. 2. Nicotine withdrawal. 3. Paroxysmal supraventricular tachyarrhythmias. 4. Rhabdomyolysis. 5. Schizoaffective disorder. PLAN: 1. Continue hydration. 2. Add beta-bruce. 3. Maintain diltiazem. 4. Titrate antihypertensives. 5. Continue cardiac monitoring. 6. Add nicotine patch. Jason Ventura M.D. DR: BRIA JOB#: [id number] CC:
[2017-12-11 04:00] VITALS: BP 143/96
[2017-12-11 07:40] LABS: ANION GAP 10 mmol/L (5-15); BLOOD UREA NITROGEN 11 mg/dL (7-18); CARBON DIOXIDE 27 MMOL/L (21-32); CHLORIDE 101 MMOL/L (98-107); CREATINE KINASE 662 U/L (26-308); CREATININE 1.1 MG/DL (0.55-1.30); POTASSIUM 3.1 MMOL/L (3.5-5.1); SODIUM 138 MMOL/L (136-145)
[2017-12-11 08:00] VITALS: BP 129/85
[2017-12-11] MEDS: Metoprolol Succinate XL 50mg tab ORAL SCH (08:37)
[2017-12-11] MEDS: Aspirin Baby 81mg ORAL SCH (08:37)
[2017-12-11] MEDS: ARIPiprazole 10mg tab ORAL SCH (08:37)
[2017-12-11] MEDS: Norco 5mg/325mg tab ORAL PRN ×2 (08:38→21:07)
[2017-12-11] MEDS: Heparin 5000 units/ml inj SUBQ SCH ×2 (08:39→21:08)
[2017-12-11] MEDS ORDERED: dilTIAZem HCl CD 180mg cap ORAL SCH (09:00)
--- NOTE | 2017-12-11 11:40 | General Progress Note ---
Assessment/Plan Status: stable, progressing Assessment/Plan schizophrenia Abilify 20mg qam provided ro/st Remeron 15mg qhs script in chart Subjective Date patient seen: December 11, 2017 Neurologic/Psychiatric: Reports: anxiety, depressed, emotional problems Allergies: Coded Allergies: No Known Allergies (Unverified , 08/26/17) Subjective slept well. no side effect from Remeron. the pt is less psychotic. Objective Last 24 Hour Vital Signs Date Time Temp Pulse Resp B/P (MAP) Pulse Ox O2 Delivery O2 Flow Rate FiO2 12/11/17 09:37 98.4 12/11/17 08:38 103 129/85 12/11/17 08:38 98.4 12/11/17 08:37 103 129/85 12/11/17 08:00 97.5 103 22 129/85 98 Room Air 97.5 12/11/17 04:00 94 12/11/17 04:00 98.4 92 20 143/96 98 Room Air 98.4 12/11/17 00:45 97.9 97.9 12/11/17 00:00 100.2 98 20 127/78 96 Room Air 100.2 12/11/17 00:00 106 12/10/17 20:45 97.9 97.9 12/10/17 20:17 100 119 122 12/10/17 20:00 107 12/10/17 20:00 101.8 100 20 123/81 97 Room Air 101.8 12/10/17 19:00 95 20 Room Air 21 12/10/17 16:13 112 125/69 12/10/17 16:00 107 12/10/17 16:00 97.7 112 20 125/59 96 97.7 12/10/17 12:00 99 12/10/17 12:00 97.5 110 19 120/71 96 97.5 Intake and Output 12/10/17 12/11/17 19:00 07:00 Intake Total 1650 ml 1825 ml Output Total 700 ml 700 ml Balance 950 ml 1125 ml Intake Oral 750 ml 1000 ml IV Total 900 ml 825 ml Output Urine Total 700 ml 700 ml # Voids 6 # Bowel Movements 1 Laboratory Tests 12/11/17 05:55: Sodium Level 138, Potassium Level 3.1L, Chloride Level 101, Carbon Dioxide Level 27, Anion Gap 10, Blood Urea Nitrogen 11, Creatinine 1.1, Estimat Glomerular Filtration Rate , Glucose Level 109H, Calcium Level 9.0, Magnesium Level 1.8, Total Creatine Kinase 662H Height (Feet): 6 Height (Inches): 0.00 Weight (Pounds): 248 General Appearance: WD/WN, no apparent distress, alert Neurologic: oriented x 3, responsive, depressed affect Emmanuel Mcclendon M.D. December 11, 2017 11:40
[2017-12-11 12:00] VITALS: BP 125/80
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
[2017-12-11] MEDS ORDERED: Gadavist 7.5mMol/7.5ml vial IV PRN (12:45)
--- NOTE | 2017-12-11 15:24 | Cardiology Report ---
APPROVED REPORT EKG Measurement Heart [id number] Normal sinus rhythm Normal ECG
[2017-12-11 16:00] VITALS: BP 153/79
[2017-12-11] MEDS ORDERED: Isovue-300 100ml vial INJ PRN (16:00)
--- NOTE | 2017-12-11 17:38 | Diagnostic Imaging Report ---
Indication: Reason For Exam: FALL Technique: Continuous helical CT scanning of the head was performed utilizing automated exposure control without intravenous contrast material. Axial and coronal reconstructions were obtained. IV contrast was administered and subsequent axial images were obtained. Coronal and sagittal reformats were made. Comparison: Noncontrast CT head noncontrast CT head 08/26/2017 CT dose: Total DLP 3042 mGycm; CTDI vol 0.2, 7 0.4, 16.5, 181.5, 70.4 mGy Findings: Examination limited due to streak artifact from multiple small foreign bodies within the scalp. Within these limitations: Noncontrast images demonstrate no evidence of acute intracranial hemorrhage. There is no appreciable abnormal mass effect. No midline shift or definite evidence of cortical edema. There are bilateral basal ganglia calcifications. There is very mild periventricular hypoattenuation, nonspecific finding most likely related to sequela of chronic microvascular ischemic change. Some atherosclerotic vascular calcifications are noted. No definite focus of abnormal postcontrast enhancement is identified on postcontrast images. [place] of [place] appears grossly patent. Please note that this exam is not protocoled for evaluation of the vascular structures. The mastoid air cells are clear. There is mucosal thickening affecting some bilateral ethmoid air cells. There is no skull fracture. Multiple metallic foreign bodies noted within the scalp. Imaged portions of the orbits are grossly unremarkable. IMPRESSION: Evaluation limited due to metallic streak artifact from multiple metallic foreign bodies in the scalp. Within these limitations: No evidence of acute intracranial hemorrhage, midline shift, mass effect or definite evidence of cortical edema. No definite focus of abnormal postcontrast enhancement. Mild nonspecific periventricular hypoattenuation suggestive of chronic ischemic microvascular changes. Mild ethmoid sinus disease. The CT scanner at [facility] is accredited by the [employer] and the scans are performed using protocols designed to limit radiation exposure to as low as reasonably achievable to attain images of sufficient resolution adequate for diagnostic evaluation.
[2017-12-11 20:00] VITALS: BP 125/80
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
[2017-12-12] VITALS: BP 119/74
[2017-12-12 04:00] VITALS: BP 136/79
[2017-12-12 08:00] VITALS: BP 121/77
[2017-12-12] MEDS: ARIPiprazole 10mg tab ORAL SCH (08:14)
[2017-12-12] MEDS: Metoprolol Succinate XL 50mg tab ORAL SCH (08:14)
[2017-12-12] MEDS: dilTIAZem HCl CD 240mg cap ORAL SCH (08:15)
[2017-12-12] MEDS: Aspirin Baby 81mg ORAL SCH (08:15)
[2017-12-12] MEDS: Heparin 5000 units/ml inj SUBQ SCH ×2 (08:17→20:32)
[2017-12-12] MEDS ORDERED: 1/2 NS 1000ml IV ONE (11:03)
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
[2017-12-12 12:00] VITALS: BP 110/72
[2017-12-12 16:00] VITALS: BP 132/83
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
[2017-12-12 20:00] VITALS: BP 120/76
[2017-12-13] VITALS: BP 128/75
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
[2017-12-13 04:00] VITALS: BP 112/68
[2017-12-13 07:29] LABS: BASOPHILS % (AUTO) 1.7 % (0.0-2.0); EOSINOPHILS % (AUTO) 0.2 % (0.0-3.0); HEMATOCRIT 37.8 % (42.0-52.0); LYMPHOCYTES % (AUTO) 24.8 % (20.0-45.0); MEAN CORPUSCULAR VOLUME 95 FL (80-99); MONOCYTES % (AUTO) 17.1 % (1.0-10.0); NEUTROPHILS % (AUTO) 56.2 % (45.0-75.0); PLATELET COUNT 249 K/UL (150-450); RED BLOOD COUNT 3.98 M/UL (4.70-6.10); RED CELL DISTRIBUTION WIDTH 13.2 % (11.6-14.8); WHITE BLOOD COUNT 8.7 K/UL (4.8-10.8)
[2017-12-13 07:56] LABS: ALANINE AMINOTRANSFERASE 171 U/L (12-78); ALBUMIN/GLOBULIN RATIO 0.6 (1.0-2.7); ALKALINE PHOSPHATASE 58 U/L (46-116); ANION GAP 9 mmol/L (5-15); ASPARTATE AMINO TRANSFERASE 53 U/L (15-37); BILIRUBIN,TOTAL 0.6 MG/DL (0.2-1.0); BLOOD UREA NITROGEN 11 mg/dL (7-18); CALCIUM 9.3 MG/DL (8.5-10.1); CARBON DIOXIDE 28 MMOL/L (21-32); CHLORIDE 102 MMOL/L (98-107); CREATINE KINASE 238 U/L (26-308); CREATININE 1.2 MG/DL (0.55-1.30); PHOSPHORUS 2.9 MG/DL (2.5-4.9); POTASSIUM 3.4 MMOL/L (3.5-5.1); SODIUM 139 MMOL/L (136-145)
[2017-12-13 08:00] VITALS: BP 132/83
[2017-12-13] MEDS: Aspirin Baby 81mg ORAL SCH (08:03)
[2017-12-13] MEDS: Metoprolol Succinate XL 50mg tab ORAL SCH (08:05)
[2017-12-13] MEDS: dilTIAZem HCl CD 240mg cap ORAL SCH (08:06)
[2017-12-13] MEDS: ARIPiprazole 10mg tab ORAL SCH (08:06)
[2017-12-13] MEDS: Heparin 5000 units/ml inj SUBQ SCH ×2 (08:07→20:20)
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
[2017-12-13] MEDS: Miralax 17gm pkt ORAL PRN (11:47)
[2017-12-13 12:00] VITALS: BP 137/86
[2017-12-13 16:00] VITALS: BP 157/87
[2017-12-13] MEDS: Norco 5mg/325mg tab ORAL PRN (17:20)
[2017-12-13 20:00] VITALS: BP 112/68
[2017-12-14] VITALS: BP 144/72
--- NOTE | 2017-12-14 02:45 | Progress Note ---
DATE: 12/12/2017 CARDIOLOGY PROGRESS NOTE SUBJECTIVE: The patient was seen by Neurology. Antiseizure therapy is in place for presumed breakthrough seizure leading to syncope prior to admission. The patient continues to have episodes of rapid heart rate. OBJECTIVE: VITAL SIGNS: Blood pressure 121/77, pulse 94, respiratory rate 18 and afebrile. NECK: Supple. LUNGS: Clear. CARDIAC: Regular. Normal S1 and S2 with a fourth heart sound. ABDOMEN: Soft. No edema. IMPRESSION: 1. Syncope. 2. Seizure disorder. 3. Paroxysmal supraventricular tachyarrhythmias. 4. Secondary sinus tachycardia. 5. Hypertensive heart disease. PLAN: 1. Cardiac monitoring. 2. Antiseizure therapy. 3. Titration of diltiazem and metoprolol. 4. Monitor electrolytes and replace accordingly. Jason Ventura M.D. DR: TAPAN JOB#: [id number] CC:
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
[2017-12-14 04:00] VITALS: BP 120/70
[2017-12-14 08:00] VITALS: BP 129/81
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
[2017-12-14] MEDS: Aspirin Baby 81mg ORAL SCH (09:30)
[2017-12-14] MEDS: dilTIAZem HCl CD 180mg cap ORAL SCH (09:31)
[2017-12-14] MEDS: ARIPiprazole 10mg tab ORAL SCH (09:31)
[2017-12-14] MEDS: Heparin 5000 units/ml inj SUBQ SCH ×2 (09:36→20:29)
[2017-12-14] MEDS: Metoprolol Succinate XL 50mg tab ORAL SCH (09:39)
[2017-12-14 09:56] LABS: BASOPHILS % (AUTO) 0.9 % (0.0-2.0); EOSINOPHILS % (AUTO) 0.5 % (0.0-3.0); HEMATOCRIT 39.3 % (42.0-52.0); HEMOGLOBIN 13.5 G/DL (14.2-18.0); LYMPHOCYTES % (AUTO) 25.1 % (20.0-45.0); MEAN CORPUSCULAR VOLUME 96 FL (80-99); NEUTROPHILS % (AUTO) 56.5 % (45.0-75.0); PLATELET COUNT 252 K/UL (150-450); RED BLOOD COUNT 4.11 M/UL (4.70-6.10); RED CELL DISTRIBUTION WIDTH 13.5 % (11.6-14.8); WHITE BLOOD COUNT 8.7 K/UL (4.8-10.8)
[2017-12-14 10:11] LABS: ALANINE AMINOTRANSFERASE 134 U/L (12-78); ALBUMIN 2.7 G/DL (3.4-5.0); ALBUMIN/GLOBULIN RATIO 0.5 (1.0-2.7); ALKALINE PHOSPHATASE 60 U/L (46-116); ANION GAP 10 mmol/L (5-15); ASPARTATE AMINO TRANSFERASE 47 U/L (15-37); BILIRUBIN,TOTAL 0.6 MG/DL (0.2-1.0); BLOOD UREA NITROGEN 10 mg/dL (7-18); CALCIUM 9.5 MG/DL (8.5-10.1); CARBON DIOXIDE 23 MMOL/L (21-32); CHLORIDE 102 MMOL/L (98-107); CREATININE 1.1 MG/DL (0.55-1.30); POTASSIUM 4.2 MMOL/L (3.5-5.1); SODIUM 135 MMOL/L (136-145)
--- NOTE | 2017-12-14 10:13 | Diagnostic Imaging Report ---
APPROVED REPORT CPT Code: 58563 Vascular Symptoms Syncope CAROTID (BILATERAL) - Imaging reveals no significant plaque within the right and left extracranial carotid arteries. The Doppler spectral flow analysis is within normal limits throughout the extracranial carotid arteries bilaterally. VERTEBRAL- The vertebral arteries are within normal limits.
[2017-12-14 12:00] VITALS: BP 120/77
[2017-12-14 16:00] VITALS: BP 123/75
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
[2017-12-14 20:00] VITALS: BP 128/75
[2017-12-14] MEDS: Norco 5mg/325mg tab ORAL PRN (20:27)
[2017-12-14] MEDS: Miralax 17gm pkt ORAL PRN (20:27)
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
[2017-12-15] VITALS: BP 112/67
[2017-12-15 04:00] VITALS: BP 135/75
[2017-12-15 06:46] LABS: ALANINE AMINOTRANSFERASE 115 U/L (12-78); ALBUMIN 2.8 G/DL (3.4-5.0); ALBUMIN/GLOBULIN RATIO 0.6 (1.0-2.7); ALKALINE PHOSPHATASE 62 U/L (46-116); ANION GAP 5 mmol/L (5-15); ASPARTATE AMINO TRANSFERASE 39 U/L (15-37); BILIRUBIN,TOTAL 0.6 MG/DL (0.2-1.0); BLOOD UREA NITROGEN 9 mg/dL (7-18); CALCIUM 9.4 MG/DL (8.5-10.1); CARBON DIOXIDE 31 MMOL/L (21-32); CHLORIDE 103 MMOL/L (98-107); CREATININE 1.1 MG/DL (0.55-1.30); POTASSIUM 3.9 MMOL/L (3.5-5.1); SODIUM 139 MMOL/L (136-145)
[2017-12-15 08:00] VITALS: BP 118/73
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
[2017-12-15] MEDS ORDERED: Metoprolol Succinate ORAL (08:34)
[2017-12-15] MEDS ORDERED: ASPIRIN81 MG ORAL (08:34)
[2017-12-15] MEDS ORDERED: ABILIFY10 MG ORAL (08:34)
[2017-12-15] MEDS ORDERED: HEPARIN SO5000 UNIT2 SUBQ (08:34)
[2017-12-15] MEDS ORDERED: KEPPRA500 MG ORAL (08:34)
[2017-12-15] MEDS ORDERED: POTASSIUM CHLO20 ME1 ORAL (08:34)
[2017-12-15] MEDS ORDERED: MIRALAX17 G2 ORAL (08:34)
[2017-12-15] MEDS ORDERED: CARDIZEM CD180 MG ORAL (08:34)
[2017-12-15] MEDS ORDERED: NICODERM CQ1 EAC1 TDERMAL (08:34)
[2017-12-15] MEDS ORDERED: MIRTAZAPINE15 M3 ORAL (08:34)
[2017-12-15] MEDS: Aspirin Baby 81mg ORAL SCH (09:34)
[2017-12-15] MEDS: ARIPiprazole 10mg tab ORAL SCH (09:34)
[2017-12-15] MEDS: Metoprolol Succinate XL 50mg tab ORAL SCH (09:35)
[2017-12-15] MEDS: dilTIAZem HCl CD 180mg cap ORAL SCH (09:35)
[2017-12-15] MEDS: Heparin 5000 units/ml inj SUBQ SCH (09:36)
[2017-12-15 12:00] VITALS: BP 128/79
--- NOTE | 2017-12-15 15:32 | General Progress Note ---
Assessment/Plan Assessment/Plan schizophrenia Abilify 20mg qam provided ro/st Remeron 15mg qhs script in chart Subjective Date patient seen: December 14, 2017 Neurologic/Psychiatric: Reports: anxiety, depressed, emotional problems Allergies: Coded Allergies: No Known Allergies (Unverified , 08/26/17) Subjective slept well. no side effect from Remeron. the pt is less psychotic. Objective Last 24 Hour Vital Signs Date Time Temp Pulse Resp B/P (MAP) Pulse Ox O2 Delivery O2 Flow Rate FiO2 12/15/17 12:00 98.5 83 22 128/79 99 Room Air 98.5 12/15/17 09:35 89 118/73 12/15/17 09:35 89 118/73 12/15/17 09:00 89 96 94 12/15/17 08:00 97.7 89 21 118/73 97 Room Air 97.7 12/15/17 07:43 92 12/15/17 07:30 97 18 Room Air 21 12/15/17 04:00 79 12/15/17 04:00 99.1 86 20 135/75 97 Room Air 99.1 12/15/17 00:00 70 12/15/17 00:00 99.1 71 20 112/67 96 Room Air 99.1 12/14/17 21:00 95 98 110 12/14/17 20:00 95 12/14/17 20:00 101.8 95 20 128/75 95 Room Air 101.8 12/14/17 19:01 92 18 Room Air 21 12/14/17 16:00 100.0 82 20 123/75 96 Room Air 100.0 Intake and Output 12/14/17 12/15/17 19:00 07:00 Intake Total 520 ml Output Total 0 ml Balance 520 ml Intake Oral 400 ml Tube Feeding 120 ml Stool Total 0 ml # Voids 44 3 Laboratory Tests 12/15/17 04:35: Sodium Level 139, Potassium Level 3.9, Chloride Level 103, Carbon Dioxide Level 31, Anion Gap 5, Blood Urea Nitrogen 9, Creatinine 1.1, Estimat Glomerular Filtration Rate , Glucose Level 98, Calcium Level 9.4, Total Bilirubin 0.6, Aspartate Amino Transf (AST/SGOT) 39H, Alanine Aminotransferase (ALT/SGPT) 115H , Alkaline Phosphatase 62, Total Protein 7.7, Albumin 2.8L, Globulin 4.9, Albumin/Globulin Ratio 0.6L Height (Feet): 6 Height (Inches): 0.00 Weight (Pounds): 250 Emmanuel Mcclendon M.D. December 15, 2017 15:32
--- NOTE | 2017-12-15 15:32 | General Progress Note ---
Assessment/Plan Status: stable, progressing Assessment/Plan schizophrenia Abilify 20mg qam provided ro/st Remeron 15mg qhs script in chart Subjective Date patient seen: December 15, 2017 Neurologic/Psychiatric: Reports: depressed, emotional problems Allergies: Coded Allergies: No Known Allergies (Unverified , 08/26/17) Subjective slept well. no side effect from Remeron. the pt is less psychotic. Objective Last 24 Hour Vital Signs Date Time Temp Pulse Resp B/P (MAP) Pulse Ox O2 Delivery O2 Flow Rate FiO2 12/15/17 12:00 98.5 83 22 128/79 99 Room Air 98.5 12/15/17 09:35 89 118/73 12/15/17 09:35 89 118/73 12/15/17 09:00 89 96 94 12/15/17 08:00 97.7 89 21 118/73 97 Room Air 97.7 12/15/17 07:43 92 12/15/17 07:30 97 18 Room Air 21 12/15/17 04:00 79 12/15/17 04:00 99.1 86 20 135/75 97 Room Air 99.1 12/15/17 00:00 70 12/15/17 00:00 99.1 71 20 112/67 96 Room Air 99.1 12/14/17 21:00 95 98 110 12/14/17 20:00 95 12/14/17 20:00 101.8 95 20 128/75 95 Room Air 101.8 12/14/17 19:01 92 18 Room Air 21 12/14/17 16:00 100.0 82 20 123/75 96 Room Air 100.0 Intake and Output 12/14/17 12/15/17 19:00 07:00 Intake Total 520 ml Output Total 0 ml Balance 520 ml Intake Oral 400 ml Tube Feeding 120 ml Stool Total 0 ml # Voids 44 3 Laboratory Tests 12/15/17 04:35: Sodium Level 139, Potassium Level 3.9, Chloride Level 103, Carbon Dioxide Level 31, Anion Gap 5, Blood Urea Nitrogen 9, Creatinine 1.1, Estimat Glomerular Filtration Rate , Glucose Level 98, Calcium Level 9.4, Total Bilirubin 0.6, Aspartate Amino Transf (AST/SGOT) 39H, Alanine Aminotransferase (ALT/SGPT) 115H , Alkaline Phosphatase 62, Total Protein 7.7, Albumin 2.8L, Globulin 4.9, Albumin/Globulin Ratio 0.6L Height (Feet): 6 Height (Inches): 0.00 Weight (Pounds): 250 General Appearance: no apparent distress, alert Neurologic: oriented x 3, responsive, normal mood/affect Emmanuel Mcclendon M.D. December 15, 2017 15:32
--- NOTE | 2017-12-15 15:33 | Geriatric Progress Note ---
Assessment/Plan Assessment/Plan schizophrenia Abilify 20mg qam provided ro/st Remeron 15mg qhs script in chart Subjective Interval Events 12/12/17 Mood/Memory: Reports: prior hx, anxiety, depressed feelings, emotional problems Geriatric Geriatric Last 24 Hour Vital Signs Date Time Temp Pulse Resp B/P (MAP) Pulse Ox O2 Delivery O2 Flow Rate FiO2 12/15/17 12:00 98.5 83 22 128/79 99 Room Air 98.5 12/15/17 09:35 89 118/73 12/15/17 09:35 89 118/73 12/15/17 09:00 89 96 94 12/15/17 08:00 97.7 89 21 118/73 97 Room Air 97.7 12/15/17 07:43 92 12/15/17 07:30 97 18 Room Air 21 12/15/17 04:00 79 12/15/17 04:00 99.1 86 20 135/75 97 Room Air 99.1 12/15/17 00:00 70 12/15/17 00:00 99.1 71 20 112/67 96 Room Air 99.1 12/14/17 21:00 95 98 110 12/14/17 20:00 95 12/14/17 20:00 101.8 95 20 128/75 95 Room Air 101.8 12/14/17 19:01 92 18 Room Air 21 12/14/17 16:00 100.0 82 20 123/75 96 Room Air 100.0 Intake and Output 12/14/17 12/15/17 19:00 07:00 Intake Total 520 ml Output Total 0 ml Balance 520 ml Intake Oral 400 ml Tube Feeding 120 ml Stool Total 0 ml # Voids 44 3 Laboratory Tests Test 12/15/17 04:35 Sodium Level 139 MMOL/L (136-145) Potassium Level 3.9 MMOL/L (3.5-5.1) Chloride Level 103 MMOL/L (98-107) Carbon Dioxide Level 31 MMOL/L (21-32) Anion Gap 5 mmol/L (5-15) Blood Urea Nitrogen 9 mg/dL (7-18) Creatinine 1.1 MG/DL (0.55-1.30) Estimat Glomerular Filtration Rate mL/min (>60) Glucose Level 98 MG/DL (74-106) Calcium Level 9.4 MG/DL (8.5-10.1) Total Bilirubin 0.6 MG/DL (0.2-1.0) Aspartate Amino Transf (AST/SGOT) 39 U/L (15-37) H Alanine Aminotransferase (ALT/SGPT) 115 U/L (12-78) H Alkaline Phosphatase 62 U/L (46-116) Total Protein 7.7 G/DL (6.4-8.2) Albumin 2.8 G/DL (3.4-5.0) L Globulin 4.9 g/dL Albumin/Globulin Ratio 0.6 (1.0-2.7) L Height (Feet): 6 Height (Inches): 0.00 Weight (Pounds): 250 General Appearance: normal inspection, well appearing, alert Neurologic: oriented x3, responsive Emmanuel Mcclendon M.D. December 15, 2017 15:33
--- NOTE | 2017-12-16 02:15 | Progress Note ---
DATE: 12/15/2017 NOTE: "POOR AUDIO QUALITY" CARDIOLOGY PROGRESS NOTE SUBJECTIVE: the patient without chest pain or shortness of breath and fairly ambulatory. OBJECTIVE: VITAL SIGNS: Blood pressure 135/75, pulse 86, respiratory rate 20, and temperature 99.1 degrees. LUNGS: Clear. CARDIAC: Regular. Normal S1 and S2 with a fourth heart sound. ABDOMEN: Soft. EXTREMITIES: No edema. LABORATORY AND DIAGNOSTIC DATA: Chemistry panel within normal limits. Albumin 3.8. IMPRESSION: 1. Paroxysmal supraventricular tachyarrhythmias, now suppressed with current cardiovascular regimen. 2. Rhabdomyolysis, resolved. 3. Hypertensive heart disease with controlled blood pressure. 4. Moderate protein-calorie malnutrition, on supplement. 5. Nicotine dependence and addiction with patch at this time, but the patient wants to resume smoking upon discharge. 6. Secondary sinus tachycardia, resolved. PLAN: 1. Continue current combination dose of diltiazem and metoprolol. 2. Antiplatelet therapy. 3. Protein supplement. 4. Maintain adequate outpatient hydration. 5. Encouraged smoking cessation and offered patch in the future if reconsiders. Jason Ventura M.D. DR: TAPAN JOB#: [id number] CC:
--- NOTE | 2017-12-17 15:18 | Discharge Summary ---
Discharge Summary Hospital Course Date of Admission Dec 06, 2017 at 13:40 Date of Discharge December 15, 2017 at 13:51 Admitting Diagnosis unable to ambulate, back pain HPI Zach OharaJr is a 72 year old male who was admitted on Dec 06, 2017 at 13 :40 for Unable To Ambulate, Back Pain Hospital Course DATE OF ADMISSION: 12/06/2017 DATE OF DISCHARGE: 12/15/2017 CONSULTANTS: Dr. Jason Castaneda BRIEF HOSPITAL COURSE: Patient is a 72-year-old -[place] male, who came into the ED complaining of generalized muscular pain and weakness for several days. He described a mechanical slip and fall prior to arrival. He complained of low back pain, pelvic pain and left ankle pain. He has medical history significant for hypertension, schizophrenia, CVA, degenerative joint disease, BPH. On evaluation at ED, WBC was elevated to 17, creatinine was elevated to 2.8, BUN was 46. Total CK was 23,399, CK-MB 43.2, troponin was 0.137. Chest x-ray showed no acute disease. Left ankle x-ray with no evidence of acute fracture or dislocation. Spine CT with no evidence of acute fracture or traumatic malalignment. There was mild to moderate multilevel degenerative changes on the lumbar spine. He was admitted for evaluation of acute rhabdomyolysis and fall. He was given IV hydration. Patient has schizophrenia, and was continued on Abilify and Remeron 15 mg daily at bedtime. He had episodes of supraventricular tachycardia with rates up to 150. EKG revealed sinus rhythm with no abnormality. Echocardiogram revealed normal ejection fraction with no significant valvular disease and diastolic dysfunction with concentric left ventricular hypertrophy. She was started on diltiazem. She was given antiplatelet therapy with aspirin. He was placed on Toprol-XL 50 mg daily. He reported that he had seizure disorder during childhood and was treated for seizures with Dilantin and phenobarbital for numerous years. Approximately 15 years ago he was told he could stop taking his medications. Approximately 10 years after he stopped taking his medications, he started to have seizures every few weeks or so. He was seen by Dr. Castaneda. He was restarted on Keppra 750 mg every 12 hours. He was instructed on the essentials of seizure hygiene. He was told to stop smoking and stop drinking alcohol. He was instructed to take his antiseizure medications regularly and should be seen by a neurologist on a regular basis for management of seizure disorder. Head CT showed a metallic streak artifact from multiple metallic foreign bodies in the scalp. There was no evidence of acute intracranial hemorrhage, midline shift, mass effect or definite evidence of cortical edema. CK down trended. Tachyarrhythmias now suppressed with diltiazem and metoprolol. He was seen by physical therapy. He was eventually discharged to [facility]. FINAL DIAGNOSES: Acute rhabdomyolysis Paroxysmal supraventricular tachyarrhythmia Hypertensive heart disease Moderate protein calorie malnutrition Nicotine dependence and addiction Secondary sinus tachycardia resolved Schizophrenia Generalized seizure disorder DISPOSITION: Patient was discharged to [facility]. DISCHARGE MEDICATIONS: Refer to Discharge Medication List. I have been assigned to dictate discharge summary on this account, and I was not involved in the patient's management. Discharge Discharge Disposition Patient was discharged to [facility] (04) Eli Culp NP December 17, 2017 15:18
== END 2017-12-15 13:51 | DRG 558 ==
LOC: EDBD 12:28 → EMR 13:37 → 4W 13:40 → EDBEDREQ 15:05 → 2W 20:46 → 2E 12-07 17:19
DX: M62.82 Rhabdomyolysis (principal); I47.1 Supraventricular tachycardia; E44.0 Moderate protein-calorie malnutrition; S99.912A Unspecified injury of left ankle, initial encounter; M54.5 Low back pain; R26.2 Difficulty in walking, not elsewhere classified; W01.0XXA Fall on same level from slipping, tripping and stumbling without subsequent striking against object, initial encounter; I11.9 Hypertensive heart disease without heart failure; M19.90 Unspecified osteoarthritis, unspecified site; N40.0 Benign prostatic hyperplasia without lower urinary tract symptoms; F20.9 Schizophrenia, unspecified; E78.5 Hyperlipidemia, unspecified; G40.909 Epilepsy, unspecified, not intractable, without status epilepticus; F17.200 Nicotine dependence, unspecified, uncomplicated; Z18.10 Retained metal fragments, unspecified
CPT/HCPCS: 36415; 70470; 71045; 72131; 74176; 80048; 80053; 80061; 80299; 81003; 82550; 82553; 82962; 83735; 84100; 84443; 84484; 85025; 93005; 93306; 93880; 94664; 95819; 99285; J8499

== ENCOUNTER 2020-04-12 04:40 | Emergency (ER) | payer MEDICARE, OTHER ==
[~2020-04-12] VITALS: Ht 190.5 cm; Wt 99.8 kg
[~2020-04-12 04:40] MED LIST changes: +ASPIRIN81 MG ORAL; +CARDIZEM CD180 MG ORAL; +CATAPRES0.1 MG ORAL; +FUROSEMIDE40 MG ORAL; +HEPARIN SO5000 UNIT2 SUBQ; +KEPPRA500 MG ORAL; +MIRALAX17 G2 ORAL; +MIRTAZAPINE15 M3 ORAL; +Metoprolol Succinate ORAL; +NICODERM CQ1 EAC1 TDERMAL; +POTASSIUM CHLO20 ME1 ORAL
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
[2020-04-12 04:52] VITALS: BP 173/96
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
[2020-04-12] MEDS ORDERED: HYDROcodone/Acetamin 5/325 tab ORAL ONE (05:00)
[2020-04-12] MEDS ORDERED: IBUPROFEN600 M1 ORAL (06:03)
--- NOTE | 2020-04-12 06:05 | NUR ---
ED Nurse Note: Pt returned from CT in stable condition
[2020-04-12] MEDS ORDERED: Ketorolac 30mg Inj IM ONE (06:45)
[2020-04-12] MEDS ORDERED: Ketorolac 60mg Inj IM ONE (06:45)
--- NOTE | 2020-04-12 06:45 | Diagnostic Imaging Report ---
ADDENDUM - Added by Elijah Lopez MD on 04/12/2020 6:52 AM (-04:00) EXAM: CT Cervical Spine Without Intravenous Contrast CLINICAL HISTORY: TRAUMA TECHNIQUE: Axial computed tomography images of the cervical spine without intravenous contrast. CTDI is 40.40 mGy and DLP is 1325.80 mGy-cm. One or more of the following dose reduction techniques were used: automated exposure control, adjustment of the mA and/or kV according to patient size, use of iterative reconstruction technique. COMPARISON: No relevant prior studies available. Findings: Flexion teardrop injury of the anterior-inferior endplate of C3 with associated comminuted fracture of the C3 spinous process, which extends into the left lamina. Note, neurosurgical evaluation is recommended as this injury pattern is often the result of severe axial/flexion injury of the cervical spine. A dedicated cervical spine MRI is recommended to evaluate for ligament injury. The atlantodens interval is maintained. The dens is intact. The craniocervical junction is intact. The remaining cervical spine demonstrates severe multilevel degenerative changes and diffuse osseous demineralization. Fusion of the right C2-3 facets. IMPRESSION: Flexion teardrop injury of the anterior-inferior endplate of C3 with associated comminuted fracture of the C3 spinous process, which extends into the left lamina. Note, neurosurgical evaluation is recommended as this injury pattern is often the result of severe axial/flexion injury of the cervical spine. A dedicated cervical spine MRI is recommended to evaluate for ligament injury. <MYCVCSECTION> Communications: 04/12/20 06:56 Call Doctor Regarding Other, called [facility] on 04/12 06:56 (-07:00)
[2020-04-12 06:53] VITALS: BP 129/85
--- NOTE | 2020-04-12 07:01 | NUR ---
ED Nurse Note: Patient placed in hard c-collar per ERMD order by industrial technology teacher.
--- NOTE | 2020-04-12 07:05 | NUR ---
HAND-OFF: Report given to ARMINAD Perez and ARMINDA Mata.
[2020-04-12 07:10] VITALS: BP 168/98
--- NOTE | 2020-04-12 07:15 | NUR ---
ED Nurse Note: Found patient laying in bed with eyes closed. Neck brace in on and pt is in supine positon. Pt complaining of occasional neck spasms but other garcia comfortable. Blood drawn, COVID swab, and urine sent to lab. 20G IV on left AC placed.
[2020-04-12 07:52] LABS: INR 1.2 (0.9-1.1)
[2020-04-12 07:59] LABS: ANION GAP 10 mmol/L (5-15); BLOOD UREA NITROGEN 16 mg/dL (7-18); CALCIUM 10.5 MG/DL (8.5-10.1); CARBON DIOXIDE 29 MMOL/L (21-32); CHLORIDE 100 MMOL/L (98-107); CREATININE 1.1 MG/DL (0.55-1.30); POTASSIUM 4.2 MMOL/L (3.5-5.1); SODIUM 139 MMOL/L (136-145)
[2020-04-12 08:03] LABS: ALANINE AMINOTRANSFERASE 57 U/L (12-78); ALBUMIN 3.7 G/DL (3.4-5.0); ALBUMIN/GLOBULIN RATIO 0.7 (1.0-2.7); ALKALINE PHOSPHATASE 70 U/L (46-116); ASPARTATE AMINO TRANSFERASE 64 U/L (15-37); BILIRUBIN,TOTAL 0.7 MG/DL (0.2-1.0)
[2020-04-12 08:05] LABS: BASOPHILS % (AUTO) 1.4 % (0.0-2.0); EOSINOPHILS % (AUTO) 0.4 % (0.0-3.0); HEMOGLOBIN 14.6 G/DL (14.2-18.0); MEAN CORPUSCULAR VOLUME 99 FL (80-99); MONOCYTES % (AUTO) 12.9 % (1.0-10.0); NEUTROPHILS % (AUTO) 70.4 % (45.0-75.0); PLATELET COUNT 229 K/UL (150-450); RED BLOOD COUNT 4.35 M/UL (4.70-6.10); RED CELL DISTRIBUTION WIDTH 13.6 % (11.6-14.8); WHITE BLOOD COUNT 13.3 K/UL (4.8-10.8)
[2020-04-12] MEDS ORDERED: Morphine Sulfate 2mg/ml Inj(IV/IM USE ONLY) IVP ONE (08:15)
[2020-04-12 08:20] LABS: APPEARANCE,URINE CLEAR; BILIRUBIN, URINE NEGATIVE (NEGATIVE); GLUCOSE, URINE (UA) 1+ (NEGATIVE); KETONES,URINE NEGATIVE (NEGATIVE); LEUKOCYTE ESTERASE ,URINE NEGATIVE (NEGATIVE); NITRITE,URINE NEGATIVE (NEGATIVE); PH,URINE 6 (4.5-8.0); PROTEIN,URINE 3+ (NEGATIVE); UROBILINOGEN,URINE NORMAL MG/DL (0.0-1.0)
[2020-04-12 08:28] LABS: COLOR,URINE YELLOW
--- NOTE | 2020-04-12 08:28 | NUR ---
ED Nurse Note: pt had 9 beats of vtach, asymptomatic. ED MD aware.
[2020-04-12 09:00] VITALS: BP 161/94
--- NOTE | 2020-04-12 09:46 | NUR ---
ED Nurse Note: Report given to ARMINDA Spence @ [facility].
--- NOTE | 2020-04-12 09:53 | NUR ---
ED Nurse Note: [facility] ambulance @ bedside. Report given. Packet provided.
[2020-04-12 10:05] VITALS: BP 154/87
--- NOTE | 2020-04-12 10:05 | NUR ---
ER DISCHARGE NOTE: Patient is cleared to be discharged per ERMD, pt is aox4, on room air, with stable vital signs as documented. pt being discharged with IV access. No acute distress noted. Pt discharged safely via gurney accompanied by ambulance personnel en route to [facility].
--- NOTE | 2020-04-13 16:44 | Diagnostic Imaging Report ---
Indication: Chest pain Technique: One view of the chest Comparison: 12/07/2027 Findings: Suboptimal inspiration. Body habitus also limits evaluation. The heart is borderline enlarged. No definite acute infiltrates, effusions, congestion. Impression: Limited exam, as described Borderline cardiomegaly No definite acute process
== END 2020-04-12 10:05 | disposition short-term general hospital (02) ==
LOC: EDBD 04:40 → EMR 04:57
DX: S12.200A Unspecified displaced fracture of third cervical vertebra, initial encounter for closed fracture (principal); M54.2 Cervicalgia; I10 Essential (primary) hypertension; V43.52XA Car driver injured in collision with other type car in traffic accident, initial encounter; Y92.411 Interstate highway as the place of occurrence of the external cause; Z86.73 Personal history of transient ischemic attack (TIA), and cerebral infarction without residual deficits
CPT/HCPCS: 36415; 71045; 72125; 80053; 81001; 83690; 84484; 85025; 85610; 85730; 87086; 93005; 96365; 96372; 96375; 99284; J1885; J2270; U0002